=== PATIENT | female | born 1985 | race Two or more races ===

== ENCOUNTER 2023-07-21 20:02 | Outpatient (REF) | payer OTHER, SELFPAY ==
[2023-07-28 15:07] LABS: Age Gdln ACOG Testing Note (.); HPV Aptima Negative (Negative); IGP, Aptima HPV, rfx 16/18,45 Note (.)
== END 2023-07-21 20:03 | disposition home or self-care (01) ==
LOC: LAB 20:02
PROVIDERS: PCP Obstetrics & Gynecology; Visit Provider Obstetrics & Gynecology
DX: Z12.4 Encounter for screening for malignant neoplasm of cervix (principal)
CPT/HCPCS: 87624; G0145

== ENCOUNTER 2024-07-28 19:26 | Outpatient (REF) | payer OTHER, SELFPAY ==
[2024-08-03 10:13] LABS: Age Gdln ACOG Testing Note (.); HPV Aptima Negative (Negative); IGP, Aptima HPV, rfx 16/18,45 Note (.)
== END 2024-07-28 19:27 | disposition home or self-care (01) ==
LOC: LAB 19:26
PROVIDERS: PCP Obstetrics & Gynecology; Visit Provider Obstetrics & Gynecology
DX: Z01.419 Encounter for gynecological examination (general) (routine) without abnormal findings (principal)
CPT/HCPCS: 87624; 88175

== ENCOUNTER 2025-08-08 03:45 | Emergency (ER) | payer OTHER, SELFPAY ==
--- OUTSIDE RECORDS SUMMARY | 2025-08-03 20:57 | XMS_ITS | Encounter Summary ---
Author Organization [employer] [facility] Address [facility] [id number] [address] [place] [address] Care Team Providers Care Case Managers Name Role Phone Carmita Albright MD Primary Care Provider [phone] Reason for Visit * Reason Comments Dizziness Encounter Details Date Type Department Care Team ([facility] st Contact Info) Description 08/03/2025 8:57 PM EDT - 08/03/2025 10:57 PM EDT Emergency [facility] - Emergency [address] [place] [id number] Tomas West MD [address] [place] [address] [phone] Orthostasis (Primary Dx) Discharge Disposition: Home Social History Tobacco Use Types Packs/Day Years Used Date Smoking Tobacco: Never Smokeless Tobacco: Never Childcare Answer Date Recorded Childcare Unknown 05/04/2019 Employment Answer Date Recorded Employment Unknown 05/04/2019 Hunger Screening Answer Date Recorded Within the past 12 months we worried whether our food would run out before we got money to buy more. Never True 08/03/2025 Within the past 12 months th e food we bought just didn't last and we didn't have money to get more. Never True 08/03/2025 Comments No Sex and Gender Information Value Date Recorded Sex Assigned at Not on file Legal Sex Female 12:01 PM EDT Gender Identity Not on file Sexual Orientation Not on file documented as of this encounter Last Filed Vital Signs Vital Sign Reading Time Taken Comments Blood Pressure 116/84 08/03/2025 10:45 PM EDT Pulse 80 08/03/2025 10:45 PM EDT Temperature 36.3 C (97.3 F) 08/03/2025 9:01 PM EDT Respiratory Rate 16 08/03/2025 10:45 PM EDT Oxygen Saturation 97% 08/03/2025 10:45 PM EDT Inhaled Oxygen Concentration - - Weight 61.7 kg (136 lb) 08/03/2025 9:01 PM EDT Height 157.5 cm (5' 2 ) 08/03/2025 9:01 PM EDT Body Mass Index 24.87 08/03/2025 9:01 PM EDT documented in this encounter Discharge Instructions * Attachments The following attachments cannot be sent through Care Everywhere. * Orthostatic hypotension (Kittitian) documented in this encounter Medications at Time of Discharge metFORMIN (FORTAMET) 500 MG (OSM) 24 hr tablet Take 1 tablet (500 mg total) by mouth in the morning and 1 tablet (500 mg total) in the evening. Take with meals. ondansetron (ZOFRAN) 4 mg tablet Take 1 tablet (4 mg total) by mouth every 8 (eight) hours as needed for nausea or vomiting for up to 12 doses. 12 tablet 10/24/2021 documented as of this encounter ED Notes * Tomas West MD - 08/03/2025 9:06 PM EDT Images from the original note were not included. [facility] - EMERGENCY Pt Name: Dora De Jesus Birthdate: 1985 Chief Complaint: Chief Complaint Patient presents with Dizziness History of Present Illness: Initial evaluation performed at 9:[address] West. Patient is a 40 y.o. pre-diabetic female who presents to the ED for evaluation of dizziness . Pt states that she she began experiencing diaphoresis, anxious feeling, light-headedness, and a weird chest sensation after standing up and walking around. Pt describes her light-headedness as feeling like she was going to pass out, not like the room was spinning around her. Pt describes chest sensationas weird, but not painful and denies feeling palpitations or flutters in the heart. Pt states that she suspects her blood sugar was low, but she has no way to check it. She checked her blood pressure, which was 131/95. Pt denies any bloody stools. Pt denies any recent travel or surgeries. Pt takes Metformin. These symptoms were worsened by standing up fast. Patient has not eat or drank well over the past couple of years. 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) Past Surgical History: History reviewed. No pertinent surgical history. Family History: History reviewed. No pertinent family history. Social History: Social History Socioeconomic History Marital status: Tobacco Use Smoking status: Never Smokeless tobacco: Never Substance and Sexual Activity Drug use: Yes Types: Marijuana Social Drivers of Health Financial Resource Strain: Low Risk (04/04/2024) Received from [facility] Overall Financial Resource Strain (CARDIA) Difficulty of Paying Living Expenses: Not hard at all Food Insecurity: No Food Insecurity (08/03/2025) Hunger Screening Food Insecurity - Worry: Never True Food Insecurity - Inability: Never True Transportation Needs: No Transportation Needs (04/04/2024) Received from [facility] PRAPARE - Transportation Lack of Transportation (Medical): No Lack of Transportation (Non-Medical): No Physical Activity: Insufficiently Active (04/04/2024) Received from [facility] Exercise Vital Sign Days of Exercise per Week: 2 days Minutes of Exercise per Session: 20 min Stress: Stress Concern Present (04/04/2024) Received from [facility] [place] [facility] [employer] [facility] - Occupational Stress Questionnaire Feeling of Stress : To some extent Social Connections: Moderately Integrated (04/04/2024) Received from [facility] Social Connection and Isolation Panel [NHANES] Frequency of Communication with Friends and Family: More than three times a week Frequency of Social Gatherings with Friends and Family: Twice a week Attends Protestant Services: More than 4 times per year Active Member of Clubs or Organizations: No Attends Club or Organization Meetings: Patient declined Marital Status: Housing Instability: Low Risk (04/04/2024) Received from [facility] Housing Stability Vital Sign Unable to Pay for Housing in the Last Year: No Number of Places Lived in the Last Year: 1 Unstable Housing in the Last Year: No Review of Systems: Review of Systems Physical Exam: ED Triage Vitals Temp Heart Rate Resp BP SpO2 08/03/25 2101 08/03/25 2101 08/03/25 2103 08/03/25 21008/03/252100 36.3 ??C (97.3 ??F) 86 20 (!) 132/98 100 % Temp Source Heart Rate Source Patient Position BP Location FiO2 (%) 08/03/25210008/03/25210008/03/25210008/03/252100 -- Oral Monitor Sitting Left arm Vitals: 08/03/25 2200 08/03/25 2215 08/03/25 2230 08/03/25 2245 BP: 100/71 129/87 (!) 124/99 116/84 Temp: TempSrc: Pulse: 74 88 82 80 Resp: 17 23 18 16 SpO2: 97% 97% MAP (mmHg): 79 101 Height: Weight: Physical Exam Vitals reviewed. Constitutional: General: She is not in acute distress. Appearance: She is not toxic-appearing or diaphoretic. HENT: Head: Normocephalic and atraumatic. Mouth/Throat: Mouth: Mucous membranes are moist. Eyes: Conjunctiva/sclera: Conjunctivae normal. Cardiovascular: Rate and Rhythm: Normal rate and regular rhythm. Heart sounds: No murmur heard. No friction rub. No gallop. Pulmonary: Effort: Pulmonary effort is normal. No respiratory distress. Breath sounds: Normal breath sounds. No stridor. No wheezing. Abdominal: General: There is no distension. Palpations: Abdomen is soft. Musculoskeletal: General: No swelling or tenderness. Normal range of motion. Cervical back: Normal range of motion and neck supple. Right lower leg: No swelling or tenderness. No edema. Left lower leg: No swelling or tenderness. No edema. Skin: General: Skin is warm and dry. Capillary Refill: Capillary refill takes 2 to 3 seconds. Neurological: General: No focal deficit present. Mental Status: She is alert and oriented to person, place, and time. GCS: GCS eye subscore is 4. GCS verbal subscore is 5. GCS motor subscore is 6. Procedure: Procedures Re-evaluation: Re-Evaluation Medical Decision Making Amount and/or Complexity of Data Reviewed Labs: ordered. Decision-making details documented in ED Course. ECG/medicine tests: ordered. ED Course: ED Course as of 08/03/25 2253 Jennifer Aug 03, [id number] Troponin within normal indices. No electrolyte derangements, BUN/creatinine within normal indices, no leukocytosis, H&H reassuring against acute clinically significant anemia. [RH] 2204 Glucose: 99 [RH] 2225 Upon re-evaluation, patient reports he is feeling better. Likely orthostasis. Orthostatics negative after IV fluid administration. Plan to discharge patient with follow up to primary care physician. Patient given strict return precautions. Patient expressed understanding. All questions and concerns answered and addressed. Patient agreeable to discharge plan. [RH] ED Course User Index [RH] Tomas West MD Clinical Impressions as of 08/03/252252 Orthostasis . ED Disposition ED Disposition Discharge Date/Time Jennifer Aug 03, 2025 10:29 PM Comment At the time of discharge, the plan has been discussed with the patient regarding the diagnosis and prognosis. All questions have been answered. Verbal discharge instructions were discussed with the patient. The patient has been advised to follow up w ith their Primary Care Provider within 1-2 days.The patient was also instructed to return to the ED if their symptoms change, worsen, new symptoms a rise or if they have any additional concerns. . Please note that portions of this note were completed with a voice recognition program. Efforts were made to edit the dictations but occasionally words are mis-transcribed. Cherrie Brandon 08/03/252112 Tomas West MD 08/03/252252 documented in this encounter Plan of Treatment Not on file documented as of this encounter Procedures Procedure Name Priority Date/Time Associated Diagnosis Comments TROPONIN I, HIGH SENSITIVITY 0 HOUR STAT 08/03/2025 9:28 PM EDT TROPONIN I, HIGH SENSITIVITY 0 HOUR STAT 08/03/2025 9:28 PM EDT CBC WITH AUTO DIFFERENTIAL STAT 08/03/2025 9:28 PM EDT MAGNESIUM STAT 08/03/2025 9:28 PM EDT BASIC METABOLIC PANEL STAT 08/03/2025 9:28 PM EDT EXTRA TUBES BLUE TOP Routine 08/03/2025 9:27 PM EDT EXTRA TUBES Routine 08/03/2025 9:27 PM EDT ECG 12-LEAD STAT 08/03/2025 9:09 PM EDT documented in this encounter Results * Troponin I, High Sensitivity 0 Hour (08/03/2025 9:28 PM EDT) Pathologist [facility] TROPONIN I, HIGH SENSITIVITY <2 <16 ng/L 08/03/2025 9:57 PM EDT [facility] Blood Venous blood / Unknown Venipuncture / Unknown 08/03/2025 9:28 PM EDT 08/03/2025 9:29 PM EDT us Tomas West MD LAB BLOOD ORDERABLES Final Resu lt Performing Organization Address [facility]/ZIP Co de Phone Number [address] [place] [address], [place] * Magnesium (08/03/2025 9:28 PM EDT) Pathologist [facility] MAGNESIUM 2.2 1.8 - 2.6 mg/dL 08/03/2025 9:45 PM EDT [facility] Blood Venous blood / Unknown Venipuncture / Unknown 08/03/2025 9:28 PM EDT 08/03/2025 9:29 PM EDT Tomas West MD LAB BLOOD ORDERABLES Final Resu lt [address] [place] [address], [place] * Basic Metabolic Panel (08/03/2025 9:28 PM EDT) Pathologist [facility] SODIUM 138 134 - 146 mmol/L 08/03/2025 9:45 PM EDT [facility] POTASSIUM 3.7 3.5 - 5.0 mmol/L 08/03/2025 9:45 PM EDT [facility] CHLORIDE 103 98 - 109 mmol/L 08/03/2025 9:45 PM EDT [facility] CARBON DIOXIDE 27 22 - 32 mmol/L 08/03/2025 9:45 PM EDT [facility] ANION GAP 8 5 - 15 mmol/L 08/03/2025 9:45 PM EDT [facility] BLOOD UREA NITROGEN 15 5 - 23 mg/dL 08/03/2025 9:45 PM EDT [facility] CREATININE 0.99 0.40 - 1.00 mg/dL 08/03/2025 9:45 PM EDT [facility] Comment:METHOD TRACEABLE TO IDMS STANDARD GLUCOSE 99 65 - 99 mg/dL 08/03/2025 9:45 PM EDT [facility] CALCIUM 9.4 8.5 - 10.5 mg/dL 08/03/2025 9:45 PM EDT [facility] EGFR Non-Race Dependent 73 >=60 ml/min/1.7 3sq.m 08/03/2025 9:45 PM EDT [facility] Comment: eGFR not reported due to non-numeric value for Creatinine. Reported eGFR is based on the CKD-EPI 2020 equation that does not use a race coefficient. Blood Venous blood / Unknown Venipuncture / Unknown 08/03/2025 9:28 PM EDT 08/03/2025 9:29 PM EDT us Tomas West MD LAB BLOOD ORDERABLES Final Resu lt [facility] [address] [place] [address], [place] * (ABNORMAL) CBC auto differential (08/03/2025 9:28 PM EDT) WBC 6.3 4 - 11 x10E9/L 08/03/2025 9:34 PM EDT [facility] RBC Count 4.67 3.8 - 5.2 X10E12/L 08/03/2025 9:34 PM EDT [facility] Hemoglobin 13.8 11.7 - 15.5 g/dL 08/03/2025 9:34 PM EDT [facility] Hematocrit 40.6 35 - 47 % 08/03/2025 9:34 PM EDT [facility] MCV 87 80 - 100 fL 08/03/2025 9:34 PM EDT [facility] MCH 29.5 27 - 34 pg 08/03/2025 9:34 PM EDT [facility] MCHC 34.0 32 - 36 g/dL 08/03/2025 9:34 PM EDT [facility] RDW 13.8 11.5 - 15 % 08/03/2025 9:34 PM EDT [facility] Platelet Count 294 150 - 450 X10E9/L 08/03/2025 9:34 PM EDT [facility] MPV 6.9(L) 7 - 12 fL 08/03/2025 9:34 PM EDT [facility] Neutrophils % 67.8 % 08/03/2025 9:34 PM EDT [facility] Lymphocytes % 21.9 % 08/03/2025 9:34 PM EDT [facility] Monocytes % 9.5 % 08/03/2025 9:34 PM EDT [facility] Eosinophils % 0.7 % 08/03/2025 9:34 PM EDT [facility] Basophils % 0.1 % 08/03/2025 9:34 PM EDT [facility] Neutrophils Absolute (A) 4.3 1.5 - 6.6 10*3/uL 08/03/2025 9:34 PM EDT [facility] Lymphocytes Absolute 1.4 1.0 - 3.5 10*3/uL 08/03/2025 9:34 PM EDT [facility] Monocytes Absolute 0.6 0.0 - 0.9 10*3/uL 08/03/2025 9:34 PM EDT [facility] Eosinophils Absolute 0.0 0.0 - 0.4 10*3/uL 08/03/2025 9:34 PM EDT [facility] Basophils Absolute 0.0 0.0 - 0.2 10*3/uL 08/03/2025 9:34 PM EDT [facility] Differential Type AUTOMATED DIFFERENTIAL 08/03/2025 9:34 PM EDT [facility] Blood Venous blood / Unknown Venipuncture / Unknown 08/03/2025 9:28 PM EDT 08/03/2025 9:29 PM EDT us Tomas West MD LAB BLOOD ORDERABLES Final Resu lt [facility] [address] [place] [address] [place] [address], [place] * Light Blue Top (08/03/2025 9:27 PM EDT) Extra Tube Auto Resulted 08/03/2025 11:01 PM EDT [facility] Blood Venous blood / Unknown 08/03/2025 9:27 PM EDT 08/03/2025 9:30 PM EDT us Tomas West MD LAB BLOOD ORDERABLES Final Resu lt Performing Organization Address City/[facility]/ZIP Co de Phone Number [address] [place] [address], [place] * ECG 12 lead (08/03/2025 9:09 PM EDT) 08/03/2025 9:09 PM EDT Narrative [facility]AC[facility] - 08/03/2025 10:12 PM EDT us Tomas West MD ECG ORDERABLES Final Result [facility] documented in this encounter Visit Diagnoses Diagnosis Orthostasis- Primary Orthostatic hypotension documented in this encounter Administered Medications Inactive Administered Medications - up to 3 most recent administrations Medication Order MAR Action Action Date Dose Rate Site sodium chloride 0.9 % bolus 1,000 mL, intravenous, at 984 mL/hr, Administer over 61 Minutes, Once, On Jennifer 08/03/25 at 2110, For 1 dose Rate/Dose Verify 08/03/2025 10:25 PM EDT 984 mL/hr New Bag 08/03/2025 9:35 PM EDT 1,000 mL 984 mL/hr documented in this encounter Active and Recently Administered Medications Times are shown in EDT. Scheduled Medication Order 08/01/2025 08/02/2025 08/03/2025 sodium chloride 0.9 % bolus (COMPLETED) 1,000 mL, intravenous, at 984 mL/hr, Administer over 61 Minutes, Once, On Jennifer 08/03/25 at 2110, For 1 dose 2135 (New Bag - Prov ider: Justine Sutherland RN)2225 (Rate/Dose Verify - Provider: Justine Sutherland RN)2247 (Stop Bag - Provider: Justine Sutherland RN) documented in this encounter Care Teams Case Managers Relationship Specialty Start Date End Date Carmita Albright MD PCP - General Family Medicine 10/24/21 documented as of this encounter
--- OUTSIDE RECORDS SUMMARY | 2025-08-07 12:20 | XMS_ITS | Encounter Summary ---
Author Organization [facility] Healthcare Address [address] [place] [address] Care Team Providers Care Pesticide Chemist Name Role Phone Carmita Albright MD Primary Care Provider [phone] Reason for Referral * Imaging (Routine) - Authorized Specialty Diagnoses / Procedures Referred By Contac t Referred To Contact Radiology Diagnoses Weight loss Oropharyngeal dysphagia Other chest pain Procedures [place] esophagus barium swallow Carmita Albright MD [address] [place] [id number] Phone: tel: fax: [facility] fax: Referral ID Status Reason Start Date Expiration Date Visits Requested Visits Authorized [id number] Authorized Perform Procedure 08/07/2025 02/03/2026 1 1 * Medications - Closed Specialty Diagnoses / Procedures Referred By Arely t Referred To Contact Diagnoses Anxiety Carmita Albright MD [address] [place] [phone] Phone: tel: fax: Referral ID Status Reason Start Date Expiration Date Visits Re quested Visits Authorized [id number] Closed 1 1 * Behavioral Health - Outpatient (Routine) - Authorized Specialty Diagnoses / Procedures Referred By Contac t Referred To Contact Psychology / Behavioral Health Diagnoses Anxiety Procedures [place] OFFICE/OUTPATIENT [facility] 60 MINUTES Carmita Albright MD [address] [place] [address] Phone: tel: fax: Dustin Cortez LPC Referral ID Status Reason Start Date Expiration Date Visits Requested Visits Authorized [id number] Authorized Specialty Services Required 08/07/2025 02/03/2026 1 1 * Imaging (Routine) - Pending Review Specialty Diagnoses / Procedures Referred By Arely ashraf Referred To Contact Radiology Diagnoses Other chest pain Procedures CT chest wo IV contrast Carmita Albright MD [address] [place] [address] Phone: tel: fax: Referral ID Status Reason Start Date Expiration Date V isits Requested Visits Authorized [id number] Pending Review 08/07/2025 02/03/2026 1 1 Reason for Visit * Reason Comments Follow-up Encounter Details Date Type Department Care Team (Late st Contact Info) Description 08/07/2025 12:20 PM EDT [facility] [place] [facility] [address] [place] [address] Carmita Albright MD [address] [place] [address] Weight loss (Primary Dx); Anxiety; Oropharyngeal dysphagia; Other chest pain Social History Tobacco Use Types Packs/Day Years Used Date Smoking Tobacco: Former Cigarettes Comments:5 or less cigarette s/day stopped smoking cigarettes 2022. Alcohol Use Standard Drinks/Week Comments Not Currently 1 (1 standard drink = 0.6 oz pure alcohol) Alcohol: 3-4 drinks/monthly or less. Caffeine: 2 cups/day coffee; soda Social Connection and Isolat ion Panel [NHANES] Answer Date Recorded In a typical week, how many times do you talk on the phone with family, friends, or neighbors? More than three times a week 04/04/2024 How often do you get togethe r with friends or relatives? Twice a week 04/04/2024 How often do you attend chur or buddhist services? More than 4 times per year 04/04/2024 Do you belong to any clubs o r organizations such as rastafari groups, unions, fraternal or athletic groups, or school groups? No 04/04/2024 How often do you attend meet ings of the clubs or organizations you belong to? Patient declined 04/04/2024 Are you , , di vorced, , never , or living with a partner? 04/04/2024 AUDIT-C Answer Date Recorded Q1: How often do you have a drink containing alc ohol? Monthly or less 04/04/2024 Q2: How many drinks containi ng alcohol do you have on a typical day when you are drinking? 1 or 2 04/04/2024 Q3: How often do you have si x or more drinks on one occasion? Never 04/04/2024 Overall Financial Resource Strain (CARDIA) Answe r Date Recorded How hard is it for you to pa y for the very basics like food, housing, medical care, and heating? Not hard at all 04/04/2024 PHQ-2 Answer Date Recorded Patient Health Questionnaire-2 Score 0 06/14/2025 [facility] - Occupational Stress Questionnaire Answer Date Recorded Do you feel stress - tense, restless, nervous, or anxious, or unable to sleep at night because your mind is troubled all the time - these days? To some extent 04/04/2024 Exercise Vital Sign Answer Date Recorde d On average, how many days pe r week do you engage in moderate to strenuous exercise (like a brisk walk)? 2 days 04/04/2024 On average, how many minutes do you engage in exercise at this level? 20 min 04/04/2024 Hunger Vital Sign Answer Date Recorded Within the past 12 months, y ou worried that your food would run out before you got the money to buy more. Never true 04/04/20 24 Within the past 12 months, t he food you bought just didn't last and you didn't have money to get more. Never true 04/04/2024 PRAPARE - Transportation Answer Date Re corded In the past 12 months, has l ack of transportation kept you from medical appointments or from getting medications? No 03/23 In the past 12 months, has l ack of transportation kept you from meetings, work, or from getting things needed for daily living? No 04/04/2024 Housing Stability Vital Sign Answer Alex e Recorded In the last 12 months, was t here a time when you were not able to pay the mortgage or rent on time? No 04/04/2024 In the last 12 months, how many places have you lived? 1 04/04/2024 In the last 12 months, was t here a time when you did not have a steady place to sleep or slept in a nursing home (including now)? No 04/04/2024 Comments No Sex and Gender Information Value Date Recorded Sex Assigned at Female 04/04/2024 1:53 PM EDT Legal Sex Female 6:54 PM EDT Gender Identity Female 04/04/2024 1:53 PM EDT Sexual Orientation Straight 04/04/2024 1: 53 PM EDT documented as of this encounter Last Filed Vital Signs Vital Sign Reading Time Taken Comments Blood Pressure 112/68 08/07/2025 12:19 PM EDT Pulse 67 08/07/2025 12:19 PM EDT Temperature - - Respiratory Rate 18 08/07/2025 12:19 PM EDT Oxygen Saturation 99% 08/07/2025 12:19 PM EDT Inhaled Oxygen Concentration - - Weight 62.4 kg (137 lb 9.6 oz) 08/07/2025 12:19 PM EDT Height 164.5 cm (5' 4.75 ) 08/07/2025 12:19 PM E DT Body Mass Index 23.07 08/07/2025 12:19 PM EDT documented in this encounter Progress Notes * Carmita Albright MD - 08/07/2025 12:20 PM EDT Images from the original note were not included. Subjective ?Quick Links Last Note in Specialty Snapshot Edit RFV/CC Edit Screenings Current Meds Patient ID: Tara De Jesus is a 40 y.o. female who presents for Follow-up. HPI History of Present Illness The patient is a 40-year-old female who presents for anxiety, weight loss, dysphagia, and prediabetes. She reports experiencing episodes of sweating, which she believes are panic attacks rather than heart attacks. These episodes typically occur between 7 and 11 PM. She describes a sensation of being squeezed in her chest, accompanied by sweaty hands. During her last ER visit, she was informed that her sodium levels were low, but her other lab results were normal. After receiving fluids, she felt better. She has been experiencing weight loss, which she initially dismissed but now considers significant. She has been forcing herself to eat, even though the thought of food makes her feel nauseous. The patient has been under stress due to an impending divorce and work-related issues. She has beenexperiencing these symptoms for about 4 to 5 months. She has stopped taking gummies, which she had been using to aid sleep, but her symptoms persist. She is concerned about being alone during these episodes and fears something might happen to her. She has been taking metformin for prediabetes. She does not usually eat breakfast, but today she had a granola bar. She forces herself to eat at every meal, even though she does not feel hungry. Eating seems to help with her shakiness, but not with her chest discomfort. She occasionally experiences difficulty swallowing and heartburn, but only after eating certain foods. She tries to avoid these foods. The patient is not currently taking any medication for stress. She is interested in trying a low-dose anxiety medication and is open to seeing a counselor. She is also interested in learning techniques to calm herself down at home, as she feels uncomfortable going to the ER. She used to walk regularly but had to stop due to feeling faint. She has found that putting her head between her knees helps prevent her from fainting. Social History: Marital Status: Going through a divorce Diet: Forcing herself to eat despite nausea Alcohol: Does not drink Tobacco: Does not smoke cigarettes Recreational Drugs: Stopped taking gummies for sleep Sleep: Has always had a hard time sleeping ?Quick Review Review Full History Edit History Meds - metFORMIN (Glucophage) 500 MG tablet --- PMH - History of hormone replacement therapy History of migraine headaches Insomnia Pelvic pain Pneumonia Objective ?Quick Links Add Vitals Timeline (Adult) Labs Imaging Results Review Trend Vitals ?? Avoid pulling in long tables of results. Comment on relevant results to support your medical decision making. BP 112/68 (BP Location: Left arm, Patient Position: Sitting, BP Cuff Size: Adult) Pulse 67 Resp18 Ht 5' 4.75 Wt 137 lb 9.6 oz SpO2 99% BMI 23.07 kg/m?? Physical Exam Constitutional: Appearance: Normal appearance. She is normal weight. HENT: Head: Normocephalic and atraumatic. Nose: Nose normal. Mouth/Throat: Mouth: Mucous membranes are moist. Eyes: Pupils: Pupils are equal, round, and reactive to light. Cardiovascular: Rate and Rhythm: Normal rate and regular rhythm. Heart sounds: No murmur heard. Pulmonary: Effort: Pulmonary effort is normal. Breath sounds: Normal breath sounds. No wheezing or rhonchi. Musculoskeletal: General: No swelling. Cervical back: Normal range of motion and neck supple. Right lower leg: No edema. Left lower leg: No edema. Skin: General: Skin is warm and dry. Findings: No rash. Neurological: Mental Status: She is alert and oriented to person, place, and time. Sensory: No sensory deficit. Gait: Gait normal. Psychiatric: Mood and Affect: Mood normal. Thought Content: Thought content normal. Judgment: Judgment normal. Physical Exam ?Quick Links Full Problem List Assessment & Plan Weight loss Orders: HOTSHOT SUPERINTENDENT videofluoroscopic swallow study; Future Anxiety Orders: escitalopram (Lexapro) 5 MG tablet; Take 1 tablet (5 mg) by mouth Daily Oropharyngeal dysphagia Orders: HOTSHOT SUPERINTENDENT videofluoroscopic swallow study; Future Other chest pain Orders: CT chest wo IV contrast; Future HOTSHOT SUPERINTENDENT videofluoroscopic swallow study; Future Consider ppi Assessment & Plan 1. Anxiety: - Symptoms suggest anxiety, potentially exacerbated by stress from impending divorce and work-related issues. - Discussed the possibility of side effects from gummies consumed in mid-June 2025, but these areunlikely to be the cause of current symptoms. Counseling on anxiety management was provided. - Escitalopram prescribed at a daily dose of 1 tablet, with potential side effects including increased appetite discussed. Xanax prescribed for use as needed during severe anxiety episodes. Advised to maintain regular meals, particularly breakfast and lunch, and to monitor caffeine intake as it canlower blood sugar levels. 2. Chest pain: - A CT scan of the chest and lungs will be ordered to investigate the cause of chest pain. 3. Dysphagia: - A swallow study will be conducted [facility] to ensure there are no blockages or other issues with the ability to swallow food. 4. Prediabetes: - Metformin will be discontinued. Follow-up: A follow-up appointment is scheduled in 2 weeks or sooner if her condition worsens. Send swallow study documented in this encounter Plan of Treatment Upcoming Encounters Date Type Department Care Team (Late st Contact Info) Description 08/14/2025 8:30 AM EDT Ancillary Procedure [facility] [address] [facility] [address] [place] [address] 08/21/2025 3:00 PM EDT Office Visit [facility] [address] [place] [address] Carmita Albright MD [address] [place], [place] [id number] Scheduled Orders Name Type Priority Associated Diagnoses Orde r Schedule CT chest wo IV contrast Imaging Routine Other chest pain Expected: 08/07/2025, Expires: 08/07/2026 [place] esophagus barium swallow Imaging Routine Weight loss Oropharyngeal dysphagia Other chest pain Expected: 08/07/2025, Expires: 08/07/2026 Scheduled Referrals Name Type Priority Associated Diagnoses Order Schedule Ambulatory referral to Psychology Outpatient Referral Routine Anxiety Expected: 08/07/2025 (Approximate), Expires: 02/04/2026 documented as of this encounter Goals Goal Patient Goal Type Associated Problems Recent Progress Patient-Stated? Author Help patient manage antidepressant medication Care Plan Patient on antidepressant monitoring plan No Carmita Albright MD Baseline PHQ-9 Care Plan Baseline PHQ-9 Carmita Landon MD documented as of this encounter Visit Diagnoses Diagnosis Weight loss- Primary Loss of weight Anxiety Anxiety state, unspecified Oropharyngeal dysphagia Dysphagia, oropharyngeal phase Other chest pain documented in this encounter Additional Health Concerns Active Problems Noted Date Diagnosed Date Patient on antidepressant monitoring plan 2024 Baseline PHQ-9 08/07/2025 documented as of this encounter Care Teams Pesticide Chemist Relationship Specialty Start Date End Date Carmita Albright MD [address] [place], [place] [id number] PCP - General Family Medicine 03/31/23 documented as of this encounter
[2025-08-08] VITALS (9 sets, daily range): BP systolic 140–151; BP diastolic 96–107; PULSE 64–81; TEMP 37.2; O2SAT 97–98; BMI 25.1
--- OUTSIDE RECORDS SUMMARY | 2025-08-08 03:53 | XMS_ITS | Clinical Summary ---
Author Organization [facility] Healthcare Address [address] [place] [address] Care Team Providers Care Medical Lab Director Name Role Phone Carmita Albright MD Primary Care Provider [phone] Allergies Active Allergy Reactions Criticality Noted Date Comments Aspirin GI intolerance 05/07/2023 Codeine Itching 05/07/2023 Medications escitalopram (Lexapro) 5 MG tabletIndication s:Anxiety Take 1 tablet (5 mg) by mouth Daily 30 tablet 2 5 11/05/20 25 Active ALPRAZolam (Xanax) 0.5 MG tabletIndication s:Anxiety Take 1 tablet (0.5 mg) by mouth 3 (three) times a day as needed for anxiety 30 tablet 5 04/04/20 26 Active metFORMIN (Glucophage) 500 MG tabletIndication s:Glucose intolerance Take 1 tablet (500 mg) by mouth in the morning and 1 tablet (500 mg) in the evening. Take with meals. 180 tablet 3 5 08/07/20 25 Discontinu ed(Therapy completed) Active Problems Problem Noted Date Diagnosed Date History of hysterectomy 06/14/2025 Insomnia 06/14/2025 Tobacco abuse 06/14/2025 Assessment & Plan (06/14/2025 3:41 PM EDT): congrats on cessation Encounters Date Type Department Care Team Description 08/07/2025 12:20 PM EDT Office Visit [facility] [address] [facility] [place] [address] Carmita Albright MD Weight loss (Primary Dx); Anxiety; Oropharyngeal dysphagia; Other chest pain 08/07/[address] [place] [address] [place] [address] Carmita Albright MD 08/07/2025 Bamboo flowsheet [place] [address] [facility] [place] [address] Carmita Albright MD 08/07/2025 Travel 07/21/2025 Abstract [place] [address] [facility] [place] [address] Carmita Albright MD 06/15/2025 Results Follow-Up [place] [address] [facility] [place] [address] Carmita Albright MD CBC and differential, Lipid panel, Hemoglobin A1c, Additional followed-up results: 4 06/14/2025 8:20 AM EDT Office Visit [place] [address] [facility] [place] [address] Carmita Albright MD Routine general medical examination at a health care facility (Primary Dx); Tobacco abuse; Glucose intolerance; Dysuria; Elevated glucose; Breast cancer screening by mammogram; Weight loss 06/14/2025 Bamboo flowsheet [place] [address] [facility] [place] [address] Carmita Albright MD 06/14/2025 Travel 06/13/2025 Refill [place] [address] [facility] [place] [address] Leslie De Leon MA Glucose intolerance 06/09/2025 11:00 AM EDT Office Visit [place] [address] [facility] [place] [address] Carin Wren NP Upper respiratory tract infection, unspecified type (Primary Dx); Sore throat; Acute effusion of both middle ears 06/09/2025 Bamboo flowsheet [place] [address] [place] [phone] Carin Wren NP 06/09/2025 Travel from Last 3 Months Immunizations Immunization Administration Dates Next Due Tdap 09/02/2022,04/24/2005 Family History Medical History Relation Name Comments Diabetes Father Walter Diez Cancer Mother Tori Diez Uterine cancer Other Relation Name Status Comments Brother (2) Daughter (2) Alive Father Walter Diez Alive Mother Tori Diez Other Sister (6) Social History Tobacco Use Types Packs/Day Years Used Date Smoking Tobacco: Former Cigarettes Tobacco Cessation:Counseling Given: Not Answered Comments:5 or less cigarettes/day stopped smoking cigarettes 2022. Alcohol Use Standard [...] How often do you attend chur or christian services? More than 4 times per year 04/04/2024 Do you belong to any clubs o r organizations such as voodoo groups, unions, fraternal or athletic groups, or [...] Recorded Patient Health Questionnaire-2 Score 0 06/14/2025 [facility] - Occupational Stress Questionnaire Answer Date Recorded [...] money to buy more. Never true 04/04/20 Within the past 12 months, t he [...] place to sleep or slept in a halfway (including now)? No 04/04/2024 Comments No Sex and Gender Information Value Date Recorded Sex Assigned at Female 04/04/2024 1:53 PM EDT Legal Sex Female 6:54 PM EDT Gender Identity Female 04/04/2024 1:53 PM EDT Sexual Orientation Straight 04/04/2024 1: 53 PM EDT Last Filed Vital Signs Vital Sign Reading Time Taken Comments Blood Pressure 112/68 08/07/2025 12:19 PM EDT Pulse 67 08/07/2025 12:19 PM EDT Temperature 36.4 C (97.6 F) 06/09/2025 11:02 AM EDT Respiratory Rate 18 08/07/2025 12:19 PM EDT Oxygen Saturation 99% 08/07/2025 12:19 PM EDT Inhaled Oxygen Concentration - - Weight 62.4 kg (137 lb 9.6 oz) 08/07/2025 12:19 PM EDT Height 164.5 cm (5' 4.75 ) 08/07/2025 12:19 PM E DT Body Mass Index 23.07 08/07/2025 12:19 PM EDT Plan of Treatment Upcoming Encounters Date Type Department Care Team (Late st Contact Info) Description 08/14/2025 8:30 AM EDT [facility] [address] [address] 08/21/2025 3:00 PM EDT [facility] [address] [place] [phone] Carmita Albright MD [address] [place] [address] Health Maintenance Due Date Last Done Comments Mammogram 08/11/2025 08/11/2024 Influenza Vaccine (#1) 2026 Postp oned from 07/24/2025 (Patient Refused) Cervical Cancer Screening Discontinued Pap Smear Discontinued 07/21/2023 HPV/Cotest Discontinued Goals Goal Patient Goal Type Associated Problems Recent Progress Patient-Stated? Author Help patient manage antidepressant medication Care Plan Patient on antidepressant monitoring plan No Carmita Albright MD Baseline PHQ-9 Care Plan Baseline PHQ-9 No Carmita Albright MD Procedures Procedure Name Priority Date/Time Associated Diagnosis Comments MICROALBUMIN / CREATININE URINE RATIO Routine 06/14/2025 1:12 PM EDT Routine general medical examination at a [facility] care facility Glucose intolerance Elevated glucose CULTURE, URINE, ROUTINE Routine 06/14/2025 1:12 PM EDT Dysuria TSH W/REFLEX TO FT4 Routine 06/14/2025 8 :50 AM EDT Weight loss COMPREHENSIVE METABOLIC PANEL Routine 06/14/2025 8:50 AM EDT Routine general medical examination at a health care facility Glucose intolerance Elevated glucose HEMOGLOBIN A1C Routine 06/14/2025 8:50 AM EDT Routine general medical examination at a health care facility Glucose intolerance Elevated glucose LIPID PANEL Routine 06/14/2025 8:50 AM EDT Routine general medical examination at a health care facility Glucose intolerance Elevated glucose CBC (INCLUDES DIFF/PLT) Routine 06/14/2025 8:50 AM EDT Routine general medical examination at a health care facility Glucose intolerance Elevated glucose POCT RAPID STREP A Routine 06/09/2025 11 :26 AM EDT Upper respiratory tract infection, unspecified type Sore throat STATUS COVID-19/FLU Routine 06/09/2025 1 1:26 AM EDT Upper respiratory tract infection, unspecified type BI MAMMOGRAM SCREENING TOMOSYNTHESIS BILATERAL Routine 08/11/2024 3:59 PM EDT Breast cancer screening by mammogram PAP SMEAR Routine 07/21/2023 12:00 AM EDT from Last 3 Months or Most Recently Relevant to Health Maintenance Results * Microalbumin / creatinine urine ratio (06/14/2025 1:12 PM EDT) CREATININE, RANDOM URINE 87 20 - 275 mg/dL [facility] ALBUMIN, URINE 0.6 See Note: mg/dL [facility] Comment: Reference Range: Reference Range Not established ALBUMIN/CREATININE RATIO, RANDOM URINE 7 <30 mg/g creat [facility] Comment: The ADA defines abnormalities in albumin excretion as follows: Albuminuria Category Result (mg/g creatinine) Normal to Mildly increased <30 Moderately increased 30-299 Severely increased > OR = 300 The ADA recommends that at least two of three specimens collected within a 3-6 month period be abnormal before considering a patient to be within a diagnostic category. Urine Urine specimen obtained by clean catch procedure / Unknown 06/14/2025 1:12 PM EDT 06/14/2025 1:13 PM EDT Narrative [facility] - 06/16/2025 2:44 AM EDT SPLIT 06/14/2025 FROM [id number] Resulting Agency Comment Performing Organization Information Site ID: QPT Name: [facility] Address: [address] [place] [address], [address] [place] [address] Director: Caesar Blancas MD Carmita Albright MD LAB URINE ORDERABLES Final Resul t Performing Organization Address [facility] de Phone Number [facility] * Urine culture (clean catch) (06/14/2025 1:12 PM EDT) MICRO NUMBER [id number] [facility] SPECIMEN QUALITY Adequate [facility] SOURCE: ([facility]) URINE [facility] STATUS FINAL [facility] RESULT SEE NOTE [facility] Comment: No Growth Urine Urine specimen obtained by clean catch procedure / Unknown 06/14/2025 1:12 PM EDT 06/14/2025 1:13 PM EDT Narrative [facility] - 06/16/2025 2:44 AM EDT SPLIT 06/14/2025 FROM [id number] Resulting Agency Comment Performing Organization Information Site ID: QPT Name: [facility] Address: [address] [place] [address], [address] [place] [address] Director: Caesar Blancas MD Carmita Albright MD LAB MICROBIOLOGY - GENERAL ORDER YINKA Final Result Performing Organization Address [facility] de Phone Number [facility] * TSH W/REFLEX TO FT4 (06/14/2025 8:50 AM EDT) TSH W/REFLEX TO FT4 1.52 mIU/L [facility] Comment: Reference Range > or = 20 Years 0.40-4.50 Ranges First trimester 0.26-2.66 Second trimester 0.55-2.73 Third trimester 0.43-2.91 06/14/2025 8:50 AM EDT 06/14/2025 3:39 PM EDT Narrative [facility] - 06/15/2025 8:52 AM EDT MULTIPLE TESTING PRIORITIES; ROUTINE TESTING TO FOLLOW. Resulting Agency Comment Performing Organization Information Site ID: QPT Name: [facility] Address: [address] , [address] [place] [address] Director: Caesar Blancas MD Carmita Albright MD LAB BLOOD ORDERABLES Final Resul t [facility] * CBC and differential (06/14/2025 8:50 AM EDT) WHITE BLOOD CELL COUNT 4.4 3.8 - 10.8 Thousand/u L [facility] RED BLOOD CELL COUNT 4.83 3.80 - 5.10 Million/uL [facility] HEMOGLOBIN 14.3 11.7 - 15.5 g/dL [facility] HEMATOCRIT 43.4 35.0 - 45.0 % [facility] MCV 89.9 80.0 - 100.0 fL [facility] MCH 29.6 27.0 - 33.0 pg [facility] MCHC 32.9 32.0 - 36.0 g/dL [facility] Comment: For adults, a slight decrease in the calculated MCHC value (in the range of 30 to 32 g/dL) is most likely not clinically significant; however, it should be interpreted with caution in correlation with other red cell parameters and the patient's clinical condition. RDW 13.8 11.0 - 15.0 % [facility] PLATELET COUNT 250 140 - 400 Thousand/u L [facility] MPV 8.8 7.5 - 12.5 fL [facility] ABSOLUTE NEUTROPHILS 2,279 1,500 - 7,800 cells/uL [facility] ABSOLUTE LYMPHOCYTES 1,646 850 - 3,900 cells/uL [facility] ABSOLUTE MONOCYTES 427 200 - 950 cells/uL [facility] ABSOLUTE EOSINOPHILS 40 15 - 500 cells/uL [facility] ABSOLUTE BASOPHILS 9 0 - 200 cells/uL [facility] NEUTROPHILS 51.8 % [facility] LYMPHOCYTES 37.4 % [facility] MONOCYTES 9.7 % [facility] EOSINOPHILS 0.9 % [facility] BASOPHILS 0.2 % [facility] Blood Venous blood specimen / Unknown 06/14/2025 8:50 AM EDT 06/14/2025 3:39 PM EDT Narrative [facility] - 06/15/2025 8:52 AM EDT MULTIPLE TESTING PRIORITIES; ROUTINE TESTING TO FOLLOW. Resulting Agency Comment Performing Organization Information Site ID: QTW Name: [facility] Address: [address] [place] [phone] Director: Viktoria Boyle Carmita Albright MD LAB BLOOD ORDERABLES Final Resul t Performing Organization Address [facility] Co de Phone Number [facility] * Hemoglobin A1c (06/14/2025 8:50 AM EDT) Hemoglobin A1C 5.5 <5.7 % [facility] Comment: For the purpose of screening for the presence of diabetes: <5.7% Consistent with the absence of diabetes 5.7-6.4% Consistent with increased risk for diabetes (prediabetes) > or =6.5% Consistent with diabetes This assay result is consistent with a decreased risk of diabetes. Currently, no consensus exists regarding use of hemoglobin A1c for diagnosis of diabetes in children. According to [place] [employer] Association (ADA) guidelines, hemoglobin A1c <7.0% represents optimal control in non- diabetic patients. Different metrics may apply to specific patient populations. Standards of Medical Care in Diabetes(ADA). Blood Venous blood specimen / Unknown 06/14/2025 8:50 AM EDT 06/14/2025 3:39 PM EDT Narrative [facility] - 06/15/2025 8:52 AM EDT MULTIPLE TESTING PRIORITIES; ROUTINE TESTING TO FOLLOW. Resulting Agency Comment Performing Organization Information Site ID: QPT Name: [facility] Address: [address] [place] [address], [address] [place] [phone] Director: Caesar Blancas MD Carmita Albright MD LAB BLOOD ORDERABLES Final Resul t Performing Organization Address City/[facility]/ZIP Co de Phone Number [facility] * (ABNORMAL) Lipid panel (06/14/2025 8:50 AM EDT) CHOLESTEROL, TOTAL 246(H) <200 mg/dL [facility] HDL CHOLESTEROL 73 > OR = 50 mg/dL [facility] TRIGLYCERIDES 72 <150 mg/dL [facility] LDL CHOLESTEROL 156(H) mg/dL (calc) [facility] Comment: Reference range: <100 Desirable range <100 mg/dL for primary prevention; <70 mg/dL for patients with CHD or diabetic patients with > or = 2 CHD risk factors. LDL-C is now calculated using the Tom calculation, which is a validated novel method providing better accuracy than the Friedewald equation in the estimation of LDL-C. Kel DEGROOT et al. KIANA. 2013;310(19): 2703-4694 (http://education.[employer]/faq/TNO664) CHOL/HDLC RATIO 3.4 <5.0 (calc) [facility] NON HDL CHOLESTEROL 173(H) <130 mg/dL (calc) [facility] Comment: For patients with diabetes plus 1 major ASCVD risk factor, treating to a non-HDL-C goal of <100 mg/dL (LDL-C of <70 mg/dL) is considered a therapeutic option. Blood Venous blood specimen / Unknown 06/14/2025 8:50 AM EDT 06/14/2025 3:39 PM EDT Narrative [facility] - 06/15/2025 8:52 AM EDT MULTIPLE TESTING PRIORITIES; ROUTINE TESTING TO FOLLOW. Resulting Agency Comment Performing Organization Information Site ID: QPT Name: [facility] Address: [address] [place] [address], [address] [place] [phone] Director: Caesar Blancas MD Carmita Albright MD LAB BLOOD ORDERABLES Final Resul t [facility] * (ABNORMAL) Comprehensive metabolic panel (06/14/2025 8:50 AM EDT) [facility] Glucose 99 65 - 99 mg/dL [facility] Comment: Fasting reference interval BUN 15 7 - 25 mg/dL [facility] Creatinine 0.62 0.50 - 0.99 mg/dL [facility] EGFR 114 > OR = 60 mL/min/1. 73m2 [facility] BUN/CREATININE RATIO SEE NOTE: 6 - (calc) [facility] Comment: Not Reported: BUN and Creatinine are within reference range. Sodium 140 135 - 146 mmol/L [facility] Potassium, Bld 4.2 3.5 - 5.3 mmol/L [facility] Chloride 105 98 - 110 mmol/L [facility] Carbon Dioxide 28 20 - 32 mmol/L [facility] Calcium 9.9 8.6 - 10.2 mg/dL [facility] PROTEIN, TOTAL 7.1 6.1 - 8.1 g/dL [facility] ALBUMIN 4.5 3.6 - 5.1 g/dL [facility] GLOBULIN 2.6 1.9 - 3.7 g/dL (calc) [facility] ALBUMIN/GLOBULIN RATIO 1.7 1.0 - 2.5 (calc) [facility] BILIRUBIN, TOTAL 0.5 0.2 - 1.2 mg/dL [facility] ALKALINE PHOSPHATASE 81 31 - 125 U/L [facility] AST 23 10 - 30 U/L [facility] ALT 33(H) 6 - 29 U/L [facility] Blood Venous blood specimen / Unknown 06/14/2025 8:50 AM EDT 06/14/2025 3:39 PM EDT Narrative [facility] - 06/15/2025 8:52 AM EDT MULTIPLE TESTING PRIORITIES; ROUTINE TESTING TO FOLLOW. Resulting Agency Comment Performing Organization Information Site ID: QTW Name: [facility] Address: [address] [place] [phone] Director: Viktoria Boyle Carmita Albright MD LAB BLOOD ORDERABLES Final Resul t [facility] * STATUS COVID-19/FLU (06/09/2025 11:26 AM EDT) Pathologist [facility] FLU A - FLU B - SARS COV 2 RNA - Nasopharyngeal 06/09/2025 11 :26 AM EDT Carin Wren SHEAR OPERATOR AUTOMATIC POINT OF CARE TEST ENTER/EDIT O RDERABLES Final Result * POCT rapid strep A manually resulted (06/09/2025 11:26 AM EDT) Rapid Strep A Screen Negative Negative, None Detected Swab 06/09/2025 11:2 6 AM EDT Carin Wren SHEAR OPERATOR AUTOMATIC POINT OF CARE TEST ENTER/EDIT O RDERABLES Final Result * Bilateral screening mammogram with tomosynthesis (08/11/2024 3:59 PM EDT) Anatomical Region Laterality Modality Breast Bilateral Mammography 08/12/2024 10:4 4 AM EDT Impressions 08/12/2024 10:49 AM EDT Impression: No specific evidence of malignancy seen in either breast. Breast Density: There are scattered areas of fibroglandular density BiRads: BIRADS 2 - Benign Recommended follow-up: Routine Screening Mamm ELECTRONICALLY SIGNED BY: Salvatore Soto M.D. Narrative 08/12/2024 10:49 AM EDT Examination: BI MAMMOGRAM SCREENING TOMOSYNTHESIS BILATERAL Clinical History: breast ca screening Technique: Screening digital mammography study of both breasts was performed with 2-D and 3-D tomosynthesis imaging. No prior study available for comparison. Findings: Scattered areas of fibroglandular density are noted bilaterally. There is no evidence of dominant spiculated mass, grouped microcalcifications or skin thickening which would be suggestive of malignancy. A few small benign-appearing nodular densities on the left likely representing focal fibrocystic changes. Axillary lymph nodes are noted bilaterally. Procedure Note Salvatore Soto MD - 08/12/2024 Examination: BI MAMMOGRAM SCREENING TOMOSYNTHESIS BILATERAL Clinical History: breast ca screening Technique: Screening digital mammography study of both breasts wasperformed with 2-D and 3-D tomosynthesis imaging. No prior study availablefor comparison. Findings: Scattered areas of fibroglandular density are noted bilaterally.There is no evidence of dominant spiculated mass, groupedmicrocalcifications or skin thickening which would be suggestive ofmalignancy. A few small benign-appearing nodular densities on the leftlikely representing focal fibrocystic changes. Axillary lymph nodes arenoted bilaterally. IMPRESSION: Impression: No specific evidence of malignancy seen in either breast. Breast Density: There are scattered areas of fibroglandular density BiRads: BIRADS 2 - Benign Recommended follow-up: Routine Screening Mamm ELECTRONICALLY SIGNED BY: Salvatore Soto M.D. us Pablo Carol DO [facility] BI PROCEDURES Final Result * Pap Smear (07/21/2023 12:00 AM EDT) Swab Cervical swab / Unknown us Pablo Medina DO LAB CYTOLOGY ORDERABLES Final Re sult EXTERNAL LAB from Last 3 Months or Most Recently Relevant to Health Maintenance Additional Health Concerns Active Problems Noted Date Diagnosed Date Patient on antidepressant monitoring plan 2024 Baseline PHQ-9 08/07/2025 Insurance STEPHANIE FITZGERALD Care Teams Medical Lab Director Relationship Specialty Start Date End Date Carmita Albright MD [address] [place] [address] PCP - General Family Medicine 03/31/23
--- OUTSIDE RECORDS SUMMARY | 2025-08-08 03:53 | XMS_ITS | Encounter Summary ---
Author Organization [facility] Address [address] [place] [address] Care Team Providers Care Toy Assembly Supervisor Name Role Phone Carmita Albright MD Primary Care Provider [phone] Encounter Details Date Type Department Care Team (Late st Contact Info) Description 08/07/2025 Telephone [facility] [address] [place] [address] Carmita Albright MD [address] [place] [address] Social History Tobacco Use Types Packs/Day Years [...] 04/04/2024 How often do you attend chur ch or buddhism services? More than 4 times per year 04/04/2024 Do you belong to any clubs o r organizations such as sikhism groups, unions, fraternal or athletic groups, or [...] Recorded Patient Health Questionnaire-2 Score 0 06/14/2025 [facility] - Occupational Stress Questionnaire Answer Date [...] place to sleep or slept in a residential (including now)? No 04/04/2024 Comments No Sex and Gender Information Value Date Recorded Sex Assigned at Female 04/04/2024 1:53 PM EDT Legal Sex Female 6:54 PM EDT Gender Identity Female 04/04/2024 1:53 PM EDT Sexual Orientation Straight 04/04/2024 1: 53 PM EDT documented as of this encounter Miscellaneous Notes * Telephone Encounter - Anette Mahan MA - 08/07/2025 3:04 PM EDT Faxed to [facility] * Telephone Encounter - Elizabeth Camejo - 08/07/2025 2:52 PM EDT Pt called and states we referred her to [facility] for a swallow test and they do not take her insurance so she would like the referral sent to [facility]. The fax number is [phone]. documented in this encounter Plan of Treatment Upcoming Encounters Date Type Department Care Team (Late st Contact Info) Description 08/14/2025 8:30 AM EDT Ancillary Procedure [facility] [address] [facility] [address] [place] [address] 08/21/2025 3:00 PM EDT Office Visit [facility] [address] [place] [address] Carmita Albright MD [address] [place] [address] documented as of this encounter Goals Goal Patient Goal Type Associated Problems Recent Progress Patient-Stated? Author Help patient manage antidepressant medication Care Plan Patient on antidepressant monitoring plan No Carmita Albright MD Baseline PHQ-9 Care Plan Baseline PHQ-9 No Carmita Albright MD documented as of this encounter Visit Diagnoses Not on filedocumented in this encounter Additional Health Concerns Active Problems Noted Date Diagnosed Date Patient on antidepressant monitoring plan 2024 Baseline PHQ-9 08/07/2025 documented as of this encounter Care Teams Toy Assembly Supervisor Relationship Specialty Start Date End Date Carmita Albright MD [address] [place] [address] PCP - General Family Medicine 03/31/23 documented as of this encounter
--- OUTSIDE RECORDS SUMMARY | 2025-08-08 03:53 | XMS_ITS | CCD ---
Author Organization [facility] Care Team Providers Care Termite Inspector Name Role Phone DR JUANITA MEDINA Attending Unavailable CAROL, DR GRANT Admitting Unavailable CAROL, DR GRANT Consulting Unavailable CAROL, DR GRANT Attending Unavailable CAROL, DR GRANT Admitting Unavailable CAROL, DR GRANT Consulting Unavailable TISH, DR MERON Morales Consulting Unavailable Jose Ramon ROWE, [facility] Primary Care Provider Carmita Albright MD Unavailable CARIN MCDERMOTT Attending Unavailable CARMITA ALBRIGHT Attending Unavailable JUANITA MEDINA Attending Unavailable JUANITA MEDINA Referring Unavailable CARMITA ALBRIGHT Primary Care Unavailable CLEMENTINA DAUGHERTY Attending Unavailable JOSE RAMON CARMITA Edgar Primary Care Unavailable LINDA MONCADA Attending Unavailable Allergies Allergy Classification Reported Allergen(s) Allergy Type Date of Onset Reaction(s) Facility (2 sources) Aspirin; Translations: [ASPIRIN] Drug Allergy 6 [facility] Repository (2 sources) Codeine; Translations: [CODEINE] Drug Allergy 6 [facility] Repository (14 sources) Aluminum aspirin Drug Allergy 3 GI intolerance [facility] Work Phone: (14 sources) Codeine Drug Allergy 3 Itching [facility] Medications Current Medications Medication Drug Class(es) Dates Sig (Normalized) Sig (Original) ALPRAZolam 0.5 mg oral tablet (3 sources) Benzodiazepine Start: 08-07-2025 End: 04-04-2026 take 1 tablet by mouth three times daily as needed for anxiety ALPRAZolam (Xanax) 0.5 MG tablet Indications: Anxiety Take 1 tablet (0.5 mg) by mouth 3 (three) times a day as needed for anxiety 30 tablet 08/07/2025 04/04/2026 Active escitalopram 5 mg oral tablet (3 sources) Serotonin Reuptake Inhibitor Start: 08-07-2025 End: 11-05-2025 take 1 tablet by mouth once daily escitalopram (Lexapro) 5 MG tablet Indications: Anxiety Take 1 tablet (5 mg) by mouth Daily 30 tablet 2 08/07/2025 11/05/2025 Active Completed/Discontinued Medications Medication Drug Class(es) Dates Sig (Normalized) Sig (Original) metFORMIN hydrochloride 500 mg oral tablet (15 sources) Biguanide Start: 06-13-2025 End: 09-12-2025 take 1 tablet by mouth in the morning metFORMIN (Glucophage) 500 MG tablet Indications: Glucose intolerance Take 1 tablet (500 mg) by mouth in the morning and 1 tablet (500 mg) in the evening. Take with meals. 180 tablet 3 06/14/2025 08/07/2025 Discontinued (Therapy completed) Start: 05-02-2024 End: 05-02-2025 take 1 tablet by mouth in the morning metFORMIN (Glucophage) 500 MG tablet Indications: Glucose intolerance Take 1 tablet (500 mg) by mouth in the morning and 1 tablet (500 mg) in the evening. Take with meals. 60 tablet 11 05/02/2024 Active Problems Problem Classification Problem Date Documented Da te Episodic/Chronic Adjustment disorders (1 source) Reaction to severe stress, unspecified; Translations: [Reaction to severe stress, unspecified] Onset: 07-21-2025 Chronic Anxiety disorders (9 sources) Anxiety disorder, unspecified; Translations: [Anxiety] Onset: 07-21-2025 08-07-2025 Chronic Complications of surgical procedures or medical care (4 sources) Symptomatic postprocedural ovarian failure; Translations: [SYMPTOMATIC POSTPROC OVARIAN FAIL] Onset: 05-28-2022 Chronic Conditions associated with dizziness or vertigo (2 sources) Dizziness and giddiness; Translations: [Dizziness] Onset: 08-03-2025 Episodic Diabetes mellitus without complication (2 sources) Increased glucose level; Translations: [Other abnormal glucose] 06-14-2025 Episodic Genitourinary symptoms and ill-defined conditions (2 sources) Dysuria; Translations: [Dysuria] 06-14-2025 Episodic Immunizations and screening for infectious disease (1 source) Encounter for screening for human papillomavirus (HPV); Translations: [ENC SCREENING HUMAN PAPILLOMAVIRUS] Onset: 05-07-2022 Episodic Nonspecific chest pain (6 sources) Chest pain; Translations: [Other chest pain] 08-07-2025 Episodic Other circulatory disease (1 source) Orthostatic hypotension; Translations: [Orthostatic hypotension] Onset: 08-03-2025 Episodic Other gastrointestinal disorders (4 sources) Oropharyngeal dysphagia; Translations: [Dysphagia, oropharyngeal phase] 08-07-2025 Episodic Other nutritional; endocrine; and metabolic disorders (2 sources) Disorder of carbohydrate metabolism; 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 Other nutritional; endocrine; and metabolic disorders (6 sources) Weight decreased; Translations: [Abnormal weight loss] 06-14-2025 Episodic Other screening for suspected conditions (not mental disorders or infectious disease) (8 sources) Encounter for screening for malignant neoplasm of cervix; Translations: [Patient encounter status] Onset: 05-05-2022 Episodic Other upper respiratory infections (4 sources) Upper respiratory infection; Translations: [Acute upper respiratory infection, unspecified] 06-09-2025 Episodic Otitis media and related conditions (2 sources) Acute transudative otitis media; Translations: [Other acute nonsuppurative otitis media, bilateral] 06-09-2025 Episodic Residual codes; unclassified (8 sources) Tobacco user; Translations: [Tobacco use] Onset: 06-14-2025 06-14-2025 Episodic Residual codes; unclassified (6 sources) Insomnia; Translations: [Insomnia, unspecified] Onset: 06-14-2025 06-14-2025 Episodic Unclassified (3 sources) Patient on antidepressant monitoring plan Onset: 08-07-2025 08-07-2025 Unclassified (3 sources) Baseline PHQ-9 Onset: 08-07-2025 08-07-2025 Results Test Name Value Interpretation Reference Range Facility BASIC METABOLIC PANELon 07-24 Anion gap [Moles/Vol] 8 mmol/L Normal 04-06 [facility] Comment on above: Performed By: #### B MP #### [facility] [place] ([place] [address] VIR Calcium [Mass/Vol] 9.4 mg/dL Normal 8.5-10.5 [facility] Comment on above: Performed By: #### B MP #### [facility] ([address] [place] [address] VIR Chloride [Moles/Vol] 103 mmol/L Normal 98-109 [facility] Comment on above: Performed By: #### B MP #### [facility] ([address] [place] [address] VIR CO2 [Moles/Vol] 27 mmol/L Normal 22-32 [facility] Comment on above: Performed By: #### B MP #### [facility] ([address] [place] [address] VIR Creatinine [Mass/Vol] 0.99 mg/dL Normal 0.40-1.00 [facility] Comment on above: Result Comment: METH OD TRACEABLE TO IDMS STANDARD Performed By: #### B MP #### [facility] ([address] [place] [address] VIR GFR/1.73 sq M.predicted among non-blacks MDRD (S/P/Bld) [Vol rate/Area] 73 mL/min/{1.73_m2} Normal >=60 [facility] Comment on above: Result Comment: eGFR not reported due to non-numeric value for Creatinine. Reported eGFR is based on the CKD-EPI 2021 equation that does not use a race coefficient. Performed By: #### B MP #### [facility] ([address] [place] [address] VIR Glucose [Mass/Vol] 99 mg/dL Normal 65-99 [facility] Comment on above: Performed By: #### B MP #### [facility] ([address] [place] [address] VIR Potassium [Moles/Vol] 3.7 mmol/L Normal 3.5-5.0 [facility] Comment on above: Performed By: #### B MP #### [facility] ([address] [place] [address] VIR Sodium [Moles/Vol] 138 mmol/L Normal 134-146 [facility] Comment on above: Performed By: #### B MP #### [facility] ([address] [place] [address] VIR Urea nitrogen [Mass/Vol] 15 mg/dL Normal 5-23 [facility] Comment on above: Performed By: #### B MP #### [facility] ([address] [address] VIR CBC WITH AUTO DIFFERENTIALon 08-03-2025 BASOPHILS ABSOLUTE COUNT (10*3/UL) BY AUTOMATED COUNT 0.0 10*3/uL Normal 0.0-0.2 [facility] Comment on above: Performed By: #### C BCA #### [facility] ([address] [address] VIR BASOPHILS RELATIVE PERCENT BY AUTOMATED COUNT 0.1 % Normal [facility] Comment on above: Performed By: #### C BCA #### [facility] ([address] [address] VIR CELLAVISION DIFFERENTIAL TYPE AUTOMATED DIFFERENTIAL Normal [facility] Comment on above: Performed By: #### C BCA #### [facility] ([address] [address] VIR Eosinophils (Bld) [#/Vol] 0.0 10*3/uL Normal 0.0-0.4 [facility] Comment on above: Performed By: #### C BCA #### [facility] ([address] [place] [address] VIR EOSINOPHILS RELATIVE PERCENT BY AUTOMATED COUNT 0.7 % Normal [facility] Comment on above: Performed By: #### C BCA #### [facility] ([address] [place] [address] VIR Erythrocyte distribution width (RBC) [Ratio] 13.8 % Normal 11.5-15 [facility] Comment on above: Performed By: #### C BCA #### [facility] ([address] [place] [address] VIR Hematocrit (Bld) [Volume fraction] 40.6 % Normal 35-47 [facility] Comment on above: Performed By: #### C BCA #### [facility] ([address] [address] VIR Hemoglobin (Bld) [Mass/Vol] 13.8 g/dL Normal 11.7-15.5 [facility] Comment on above: Performed By: #### C BCA #### [facility] ([address] [address] VIR LYMPHOCYTES ABSOLUTE COUNT (10*3/UL) BY AUTOMATED COUNT 1.4 10*3/uL Normal 1.0-3.5 [facility] Comment on above: Performed By: #### C BCA #### [facility] ([address] [address] VIR LYMPHOCYTES RELATIVE PERCENT BY AUTOMATED COUNT 21.9 % Normal [facility] Comment on above: Performed By: #### C BCA #### [facility] ([address] [address] VIR MCH (RBC) [Entitic mass] 29.5 pg Normal 27-34 [facility] Comment on above: Performed By: #### C BCA #### [facility] ([address] [address] VIR MCHC (RBC) [Mass/Vol] 34.0 g/dL Normal 32-36 [facility] Comment on above: Performed By: #### C BCA #### [facility] ([address] [address] VIR MCV (RBC) [Entitic vol] 87 fL Normal 80-100 [facility] Comment on above: Performed By: #### C BCA #### [facility] ([address] [address] VIR MONOCYTES ABSOLUTE COUNT (10*3/UL) BY AUTOMATED COUNT 0.6 10*3/uL Normal 0.0-0.9 [facility] Comment on above: Performed By: #### C BCA #### [facility] ([address] [address] VIR MONOCYTES RELATIVE PERCENT BY AUTOMATED COUNT 9.5 % Normal [facility] Comment on above: Performed By: #### C BCA #### [facility] ([address] [address] VIR NEUTROPHILS ABSOLUTE COUNT BY AUTOMATED COUNT 4.3 10*3/uL Normal 1.5-6.6 [facility] Comment on above: Performed By: #### C BCA #### [facility] ([address] [address] VIR NEUTROPHILS RELATIVE PERCENT BY AUTOMATED COUNT 67.8 % Normal [facility] Comment on above: Performed By: #### C BCA #### [facility] ([address] [address] VIR Platelet mean volume (Bld) [Entitic vol] 6.9 fL Low 7-12 [facility] Comment on above: Performed By: #### C BCA #### [facility] ([address] [address] VIR Platelets (Bld) [#/Vol] 294 10*3/uL Normal 150-450 [facility] Comment on above: Performed By: #### C BCA #### [facility] ([address] [place] [address] VIR RBC COUNT 4.67 X10E12/L Normal 3.8-5.2 [facility] Comment on above: Performed By: #### C BCA #### [facility] ([address] [place] [address] VIR WBC (Bld) [#/Vol] 6.3 10*3/uL Normal 4-11 [facility] Comment on above: Performed By: #### C BCA #### [facility] ([facility]) [address] [place] [address]. [place] [address] VIR MAGNESIUMon 08-03-2025 Magnesium [Mass/Vol] 2.2 mg/dL Normal 1.8-2.6 [facility] Comment on above: Performed By: #### M G #### [facility] ([address] [place] [address] VIR TROPONIN I, HIGH SENSITIVITY 0 HOURon 08-03-2025 TROPONIN I, HIGH SENSITIVITY <^2 Normal <16 [facility] Comment on above: Performed By: #### T NIHS0 #### [facility] ([address] [place] [address] VIR BASIC METABOLIC PANELon 08-2 Anion gap [Moles/Vol] 7 mmol/L Normal 5-15 [facility] Comment on above: Performed By: #### B MP #### [facility] ([address] [place] [address] VIR Calcium [Mass/Vol] 9.2 mg/dL Normal 8.5-10.5 [facility] Comment on above: Performed By: #### B MP #### [facility] ([address] [place] [address] VIR Chloride [Moles/Vol] 106 mmol/L Normal 98-109 [facility] Comment on above: Performed By: #### B MP #### [facility] ([place] [address] [address] VIR CO2 [Moles/Vol] 22 mmol/L Normal 22-32 [facility] Comment on above: Performed By: #### B MP #### [facility] ([address] [place] [address] VIR Creatinine [Mass/Vol] 0.61 mg/dL Normal 0.40-1.00 [facility] Comment on above: Result Comment: METH OD TRACEABLE TO IDMS STANDARD Performed By: #### B MP #### [facility] ([address] [place] [address] VIR EGFR (CKD-EPI) NON-RACE DEPENDENT >^90 Normal >=60 [facility] Comment on above: Result Comment: eGFR not reported due to non-numeric value for Creatinine. Reported eGFR is based on the CKD-EPI 2020 equation that does not use a race coefficient. Performed By: #### B MP #### [facility] ([address] [place] [address] VIR Glucose [Mass/Vol] 117 mg/dL High 65-99 [facility] Comment on above: Performed By: #### B MP #### [facility] ([address] [place] [address] VIR Potassium [Moles/Vol] 3.4 mmol/L Low 3.5-5.0 [facility] Comment on above: Performed By: #### B MP #### [facility] ([address] [place] [address] VIR Sodium [Moles/Vol] 135 mmol/L Normal 134-146 [facility] Comment on above: Performed By: #### B MP #### [facility] ([address] [place] [address] VIR Urea nitrogen [Mass/Vol] 15 mg/dL Normal 5-23 [facility] Comment on above: Performed By: #### B MP #### [facility] ([address] [address] VIR CBC WITH AUTO DIFFERENTIALon 07-21-2025 BASOPHILS ABSOLUTE COUNT (10*3/UL) BY AUTOMATED COUNT 0.0 10*3/uL Normal 0.0-0.2 [facility] Comment on above: Performed By: #### C BCA #### [facility] ([address] [address] VIR BASOPHILS RELATIVE PERCENT BY AUTOMATED COUNT 0.4 % Normal [facility] Comment on above: Performed By: #### C BCA #### [facility] ([address] [address] VIR CELLAVISION DIFFERENTIAL TYPE AUTOMATED DIFFERENTIAL Normal [facility] Comment on above: Performed By: #### C BCA #### [facility] ([address] [address] VIR Eosinophils (Bld) [#/Vol] 0.0 10*3/uL Normal 0.0-0.4 [facility] Comment on above: Performed By: #### C BCA #### [facility] ([address] [address] VIR EOSINOPHILS RELATIVE PERCENT BY AUTOMATED COUNT 0.5 % Normal [facility] Comment on above: Performed By: #### C BCA #### [facility] ([address] [address] VIR Erythrocyte distribution width (RBC) [Ratio] 13.8 % Normal 11.5-15 [facility] Comment on above: Performed By: #### C BCA #### [facility] ([address] [address] VIR Hematocrit (Bld) [Volume fraction] 36.8 % Normal 35-47 [facility] Comment on above: Performed By: #### C BCA #### [facility] ([address] [address] VIR Hemoglobin (Bld) [Mass/Vol] 12.7 g/dL Normal 11.7-15.5 [facility] Comment on above: Performed By: #### C BCA #### [facility] ([address] [address] VIR LYMPHOCYTES ABSOLUTE COUNT (10*3/UL) BY AUTOMATED COUNT 1.4 10*3/uL Normal 1.0-3.5 [facility] Comment on above: Performed By: #### C BCA #### [facility] ([address] [address] VIR LYMPHOCYTES RELATIVE PERCENT BY AUTOMATED COUNT 20.8 % Normal [facility] Comment on above: Performed By: #### C BCA #### [facility] ([address] [address] VIR MCH (RBC) [Entitic mass] 29.9 pg Normal 27-34 [facility] Comment on above: Performed By: #### C BCA #### [facility] ([address] [address] VIR MCHC (RBC) [Mass/Vol] 34.4 g/dL Normal 32-36 [facility] Comment on above: Performed By: #### C BCA #### [facility] ([address] [address] VIR MCV (RBC) [Entitic vol] 87 fL Normal 80-100 [facility] Comment on above: Performed By: #### C BCA #### [facility] ([address] [address] VIR MONOCYTES ABSOLUTE COUNT (10*3/UL) BY AUTOMATED COUNT 0.6 10*3/uL Normal 0.0-0.9 [facility] Comment on above: Performed By: #### C BCA #### [facility] ([address] [address] VIR MONOCYTES RELATIVE PERCENT BY AUTOMATED COUNT 8.6 % Normal [facility] Comment on above: Performed By: #### C BCA #### [facility] ([address] [address] VIR NEUTROPHILS ABSOLUTE COUNT BY AUTOMATED COUNT 4.7 10*3/uL Normal 1.5-6.6 [facility] Comment on above: Performed By: #### C BCA #### [facility] ([address] [address] VIR NEUTROPHILS RELATIVE PERCENT BY AUTOMATED COUNT 69.7 % Normal [facility] Comment on above: Performed By: #### C BCA #### [facility] ([address] [address] VIR Platelet mean volume (Bld) [Entitic vol] 6.7 fL Low 7-12 [facility] Comment on above: Performed By: #### C BCA #### [facility] ([address] [address] VIR Platelets (Bld) [#/Vol] 266 10*3/uL Normal 150-450 [facility] Comment on above: Performed By: #### C BCA #### [facility] ([address] [address] VIR RBC COUNT 4.24 X10E12/L Normal 3.8-5.2 [facility] Comment on above: Performed By: #### C BCA #### [facility] ([address] [address] VIR WBC (Bld) [#/Vol] 6.7 10*3/uL Normal 4-11 [facility] Comment on above: Performed By: #### C BCA #### [facility]) [address] [place] [address] [place] [address] VIR MAGNESIUMon 07-21-2025 Magnesium [Mass/Vol] 1.9 mg/dL Normal 1.8-2.6 [facility] Comment on above: Performed By: #### M G #### [facility] ([facility]) [address] [place] [address] [place] [address] VIR TROPONIN I, HIGH SENSITIVITY 0 HOURon 07-21-2025 TROPONIN I, HIGH SENSITIVITY <^2 Normal <16 [facility] Comment on above: Performed By: #### T NIHS0 #### [facility] ([address] [place] [address] VIR XR CHEST 2 VWSon 07-21-2025 XR CHEST 2 VWS XR CHEST 2 VWS HISTORY: Chest pain COMPARISON: None FINDINGS: PA and lateral views of the chest were obtained. Heart size is normal. Lungs demonstrate no significant airspace consolidation or vascular congestion. There is no pneumothorax or pleural effusion. IMPRESSION: * No acute abnormality. Finalized by Cl Gunn MD on 07/21/2025 3:30 AM Normal [facility] Laboratory - Microbiology an d Antimicrobial susceptibilityon 06-09-2025 SARS-CoV-2 (COVID-19) RNA MELISSA+probe Ql (Unsp spec) - [facility] S. pyogenes Ag Ql (Throat) Negative Negative, None Detected [facility] No Panel Informationon 06-09 FLU A - [facility] FLU B - [facility] BI MAMMOGRAM SCREENING TOMOS YNTHESIS BILATERALon 08-11-2024 BI MAMMOGRAM SCREENING TOMOSYNTHESIS BILATERAL This is a summary report. The complete report is available in the patient's medical record. If you cannot access the medical record, please contact the sending organization for a detailed fax or copy. Examination: BI MAMMOGRAM SCREENING TOMOSYNTHESIS BILATERAL Clinical [...] changes. Axillary lymph nodes are noted bilaterally. IMPRESSION: Impression: No specific evidence of malignancy seen in either breast. Breast Density: There are scattered areas of fibroglandular density BiRads: BIRADS 2 - Benign Recommended follow-up: Routine Screening Mamm ELECTRONICALLY SIGNED BY: Salvatore Soto M.D. Normal Not Available IGP,APTIMA HPV,AGE GDLNon AGE GDLN ACOG TESTING Note . [facility] Comment on above: TESTS RESULT FLAG UN ITS REF RANGE LAB Clinician Provided Cytology Information Source.............Vagina No. of containers..01 ThinPrep Vial Age Algo ACOG Irma... 30-65 01 FLAG LEGEND: L-Low Normal,H-High Normal,LL-Alert Low,HH-Alert High <-Panic Low,>-Panic High,A-Abnormal,AA-Critical Abnormal Performed at: 01 =G [address] [address] Aicha Davis MD, HPV APTIMA Negative Negative [facility] Comment on above: This nucleic acid am plification test detects fourteen high- risk HPV types (16,18,31,33,35,39,45,51,52,56,58,59,66,68) without differentiation. Performed at: =G - [facility] [id number] Diplomatic Officer: Aicha Davis MD, Phone: [phone] Performed at: WB - [facility], [place] [id number] Diplomatic Officer: Aicha Davis MD, Phone: [phone] IGP, APTIMA HPV, RFX 16/18,45 Note . [facility] Comment on above: TESTS RESULT FLAG UN ITS REF RANGE LAB DIAGNOSIS: 02 NEGATIVE FOR INTRAEPITHELIAL LESION OR MALIGNANCY. THIS SPECIMEN WAS RESCREENED PART OF OUR PROFESSOR OF ART HISTORY PROGRAM. Specimen adequacy: 02 Satisfactory for evaluation. Performed by: Esperanza Patel, Scientific Linguist (ASCP) QC reviewed by: Esperanza Carvajal, Scientific Linguist (ASCP) . 02 Note: Note 02 The Pap smear is a screening test designed to aid in the detection of premalignant and malignant conditions of the uterine cervix. It is not a diagnostic procedure and should not be used as the sole means of detecting cervical cancer. Both false-positive and false-negative reports do occur. Test Methodology: Note 02 This liquid based ThinPrep(R) pap test was screened with the use of an image guided system. HPV Genotype Reflex Note 02 Criteria not met, HPV Genotype not performed. FLAG LEGEND: L-Low Normal,H-High Normal,LL-Alert Low,HH-Alert High <-Panic Low,>-Panic High,A-Abnormal,AA-Critical Abnormal Performed at: [address] [address] Aicha Davis MD, [facility] Cytology Cervical or vaginal smear or scraping studyOrdered By: Ashlyn Calles on 07-21-2023 [facility] XR DEXA BONE DENSITYon 05-28 XR DEXA BONE DENSITY EXAMINATION: XR DEX A BONE DENSITY, 05/28/2022 3:36 PM EDT HISTORY: Symptomatic postprocedural ovarian failure COMPARISON: None. TECHNIQUE: Dual-energy X-ray absorptiometry (DEXA) bone density study performed for the axial skeleton. FINDINGS: SPINE ANALYSIS: Average bone mineral density is 1.131 g/cm2. T-score (standard deviation relative to young adult mean): -0.6 . HIP ANALYSIS: Lowest bone mineral density is within the femoral trochanter, 0.800 g/cm2. T-score (standard deviation relative to young adult mean): -0.4 . IMPRESSION: World [employer] Classification: Normal - Low Fracture Risk Electronically authenticated by: MERON WINSTON Date: 2022-05-28 17:15 Normal [facility] PAP ACOG PANEL 2: 30 to 65on 05-08-2022 . . Normal [facility] Comment on above: Result Comment: Perf ormed at: WB Performed By: #### [id number] #### [facility] [address] [address] [address] Cruz Moy Age Gdln ACOG Testing 30-65 Normal [facility] Comment on above: Performed By: #### [id number] #### [facility] [address] [place], [place] [address] Dr. Cruz Moy DIAGNOSIS: Comment Normal [facility] Comment on above: Result Comment: NEGA TIVE FOR INTRAEPITHELIAL LESION OR MALIGNANCY. Performed at: WB Performed By: #### [id number] #### [facility] [address] [address] [address] Cruz Moy HPV Aptima Negative Normal Negative [facility] Comment on above: Result Comment: This nucleic acid amplification test detects fourteen high-risk HPV types (16,18,31,33,35,39,45,51,52,56,58,59,66,68) without differentiation. Performed at: =G Performed By: #### [id number] #### [facility] [address] [address] [address] Cruz Moy Methodology: Comment Normal [facility] Comment on above: Result Comment: This liquid based ThinPrep(R) pap test was screened with the use of an image guided system. Performed at: WB Performed By: #### [id number] #### [facility] [address] [place] [address] Dr. Cruz Moy Note: Comment Normal [facility] Comment on above: Result Comment: The Pap smear is a screening test designed to aid in the detection of premalignant and malignant conditions of the uterine cervix. It is not a diagnostic procedure and should not be used as the sole means of detecting cervical cancer. Both false-positive and false-negative reports do occur. . Performed at: WB Performed By: #### [id number] #### [facility] [address] [place] [address] Dr. Cruz Moy Performed by: Comment Normal [facility] Comment on above: Result Comment: Nai Parks Scientific Linguist (ASCP) Performed at: WB Performed By: #### [id number] #### [facility] [address] [place] [address] Dr. Cruz Moy Specimen adequacy: Comment Normal [facility] Comment on above: Result Comment: Sati sfactory for evaluation. No endocervical component is identified. Performed at: WB Performed By: #### [id number] #### [facility] [address] [address] [address] Cruz Moy Vital Signs Date Time Vital Sign Value Performing Clinician Faci lity 08-07-2025 [id number] Body height 164.5 cm Carmita Albright MD Work Phone: [facility] 08-07-2025 12:19-0400 Body mass index (BMI) [Ratio] 23.07 kg/m2 Carmita Albright MD Work Phone: [facility] 08-07-2025 12:19-0400 Body weight 62.41 kg Carmita Albright MD Work Phone: [facility] 08-07-2025 12:19-0400 Diastolic blood pressure 68 mm[Hg] Carmita Albright MD Work Phone: [facility] 08-07-2025 12:19-0400 Heart rate 67 /min Carmita Albright MD Work Phone: [facility] 08-07-2025 12:19-0400 Respiratory rate 18 /min Carmita Albright MD Work Phone: [facility] 08-07-2025 12:19-0400 SaO2% (BldA) [Mass fraction] 99 % Carmita Albright MD Work Phone: [facility] 08-07-2025 12:19-0400 Systolic blood pressure 112 mm[Hg] Carmita Albright MD Work Phone: [facility] 06-14-2025 08:23-0400 Body height 164.5 cm Carmita Albright MD Work Phone: [facility] 06-14-2025 08:23-0400 Body mass index (BMI) [Ratio] 23.54 kg/m2 Carmita Albright MD Work Phone: [facility] 06-14-2025 08:23-0400 Body weight 63.69 kg Carmita Albright MD Work Phone: [facility] 06-14-2025 08:23-0400 Diastolic blood pressure 76 mm[Hg] Carmita Albright MD Work Phone: [facility] 06-14-2025 08:23-0400 Heart rate 112 /min Carmita Albright MD Work Phone: [facility] 06-14-2025 08:23-0400 Respiratory rate 18 /min Carmita Albright MD Work Phone: [facility] 06-14-2025 08:23-0400 SaO2% (BldA) [Mass fraction] 100 % Carmita Albright MD Work Phone: [facility] 06-14-2025 08:23-0400 Systolic blood pressure 128 mm[Hg] Carmita Albright MD Work Phone: [facility] 06-09-2025 11:02-0400 Body height 164.5 cm Carin Mcdermott [employer] VETERINARIAN Work Phone: [facility] 06-09-2025 11:02-0400 Body mass index (BMI) [Ratio] 23.51 kg/m2 Carin Mcdermott [employer]OUL[employer] VETERINARIAN Work Phone: [facility] 06-09-2025 11:02-0400 Body temperature 97.59 [degF] Carin Mcdermott POULTRY VETERINARIAN Work Phone: [facility] 06-09-2025 11:02-0400 Body weight 63.59 kg Carin Mcdermott POULTRY VETERINARIAN Work Phone: [facility] 06-09-2025 11:02-0400 Diastolic blood pressure 70 mm[Hg] Carin Mcdermott POULTRY VETERINARIAN Work Phone: [facility] 06-09-2025 11:02-0400 Heart rate 87 /min Carin Mcdermott POULTRY VETERINARIAN Work Phone: [facility] 06-09-2025 11:02-0400 SaO2% (BldA) [Mass fraction] 99 % Carin Mcdermott POULTRY VETERINARIAN Work Phone: [facility] 06-09-2025 11:02-0400 Systolic blood pressure 110 mm[Hg] Carin Mcdermott POULTRY VETERINARIAN Work Phone: [facility] 07-28-2024 11:38-0400 Body height 164.5 cm Juanita Carol DO Work Phone: [facility] 07-28-2024 11:38-0400 Body mass index (BMI) [Ratio] 24.48 kg/m2 Juanita Carol DO Work Phone: [facility] 07-28-2024 11:38-0400 Body weight 66.22 kg Juanita Carol DO Work Phone: [facility] 07-28-2024 11:38-0400 Diastolic blood pressure 76 mm[Hg] Juanita Carol DO Work Phone: [facility] 07-28-2024 11:38-0400 Systolic blood pressure 110 mm[Hg] Juanita Carol DO Work Phone: [facility] Healthcare Encounters Encounter Date Encounter Type Care Provider Facility Start: 08-07-2025 End: 08-07-2025 Bamboo flowsheet Carmita Albright MD Work Phone: [facility] Start: 08-07-2025 End: 08-07-2025 Bamboo flowsheet Carmita Albright MD Work Phone: [facility] Start: 08-07-2025 End: 08-07-2025 Telephone encounter Carmita Albright MD Work Phone: [facility] Start: 08-07-2025 End: 08-07-2025 Office outpatient visit 25 minutes Carmita Albright MD Work Phone: [facility] Comment on above: Weight loss (Primary Dx); Anxiety; Oropharyngeal dysphagia; Other chest pain Start: 08-03-2025 End: 08-03-2025 Emergency department patient visit [facility] Start: 07-21-2025 End: 07-21-2025 Emergency department patient visit [facility] Start: 06-14-2025 End: 06-14-2025 Bamboo flowsheet Carmita Albright MD Work Phone: [facility] Start: 06-14-2025 End: 06-14-2025 Bamboo flowsheet Carmita Albright MD Work Phone: [facility] Start: 06-14-2025 End: 06-14-2025 Patient encounter status Carmita Albright MD Work Phone: [facility] Work Phone: Start: 06-14-2025 End: 06-14-2025 Periodic preventive med est patient 40-64yrs Carmita Albright MD Work Phone: [facility] Comment on above: Routine general medi anna examination at a health care facility (Primary Dx); Tobacco abuse; Glucose intolerance; Dysuria; Elevated glucose; Breast cancer screening by mammogram; Weight loss Start: 06-14-2025 End: 06-14-2025 ambulatory CARMITA ALBRIGHT Not Available Start: 06-09-2025 End: 06-09-2025 Bamboo flowsheet Carin Mcdermott P[employer] VETERINARIAN Work Phone: [facility] Start: 06-09-2025 End: 06-09-2025 Bamboo flowsheet Carinreji Mcdermott [employer] VETERINARIAN Work Phone: [facility] Start: 06-09-2025 End: 06-09-2025 Office outpatient visit 15 minutes Carin Mcdermott [employer]OUL[employer] V[employer]ERIN[employer]IAN Work Phone: [facility] Comment on above: Upper respiratory tr act infection, unspecified type (Primary Dx); Sore throat; Acute effusion of both middle ears Start: 06-09-2025 End: 06-09-2025 ambulatory CARIN MAJORBoom Not Available Start: 08-11-2024 End: 08-11-2024 ambulatory JUANITA CAROL Not Available Start: 07-28-2024 End: 07-28-2024 Bamboo flowsheet Juanita Carol DO Work Phone: [facility] Start: 07-28-2024 End: 08-04-2024 Clinisync Result Encounter Juanita Carol DO Work Phone: [facility] Unsolicited Start: 07-28-2024 End: 08-04-2024 Clinisync Result Encounter Juanita Carol DO Work Phone: [facility] Unsolicited Start: 07-28-2024 End: 07-28-2024 Patient encounter procedure Juanita Carol DO Work Phone: [facility] Start: 07-28-2024 End: 07-28-2024 Periodic preventive med est patient 40-64yrs Juanita Carol DO Work Phone: [facility] Comment on above: Well woman exam with routine gynecological exam; Breast cancer screening by mammogram Start: 07-28-2024 End: 07-28-2024 ambulatory JUANITA MEDINA Not Available Start: 05-28-2022 End: 05-29-[address] JUANITA MEDINA Facility:[facility] Start: 05-05-2022 End: 05-05-[address] JUANITA MEDINA Facility:[facility] Procedures Date Procedure Procedure Detail Performing Clinician Start: 06-14-2025 H/O: hysterectomy History of hysterectomy Carmita Albright MD Work Phone: Start: 06-09-2025 Iaadiadoo streptococcus group a Carin Mcdermott [employer] VETERIN[employer]IAN Work Phone: Start: 06-09-2025 STATUS COVID-19/FLU Carin Mcdermott [employer] VETERINARIAN Work Phone: Start: 08-11-2024 Mammography Carin Mcdermott [employer]OULTRY VETERINARIAN Work Phone: Start: 07-28-2024 IGP,APTIMA HPV,AGE GDLN Juanitapamela Whitmoreo DO Work Phone: Start: 07-21-2023 Cytp cerv/vag auto thin layer prep mnl screen Spendjio DO Work Phone: Plan of Treatment Date Care Activity Detail Author Start: 05-22-2026 Influenza vaccination Influenza Vacc ine (#1) [facility] Comment on above: Postponed from 07/24 (Patient Refused) Start: 08-21-2025 End: 08-21-2025 Patient encounter procedure 08/21/2025 3:00 PM EDT [facility] [address] [facility] [place] [address] Carmita Albright MD [address] [facility] [place] [address] [facility] Start: 08-14-2025 End: 08-14-2025 Professional / ancillary services management 08/14/2025 8:30 AM EDT Ancillary Procedure [facility] [address] [facility] [address] [address] [facility] Start: 08-11-2025 Screening for malign ant neoplasm of breast Mammogram [facility] Start: 08-07-2025 End: 08-07-2026 CT Chest WO contrast CT chest wo IV contrast Imaging Routine Other chest pain Expected: 08/07/2025, Expires: 08/07/2026 [facility] Work Phone: Comment on above: Expected: 08/07/2025 , Expires: 08/07/2026 Start: 08-07-2025 End: 08-07-2026 RF Esophagus Views W barium contrast PO FL esophagus barium swallow Imaging Routine Weight loss Oropharyngeal dysphagia Other chest pain Expected: 08/07/2025, Expires: 08/07/2026 [facility] Comment on above: Expected: 08/07/2025 , Expires: 08/07/2026 Start: 08-07-2025 End: 08-07-2025 Patient encounter procedure 08/07/2025 12:20 PM EDT Office Visit [address] [place] [id number] Carmita Albright MD [address] [place], [place] [id number] Arrived [facility] Comment on above: Arrived Start: 07-24-2025 Influenza vaccination Influenza Vacc ine (#1) [facility] Start: 06-14-2025 End: 06-14-2026 Bacteria identified in Urine by Culture Urine culture (clean catch) Microbiology Routine Dysuria Expected: 06/14/2025 (Approximate), Expires: 06/14/2026 [facility] Comment on above: Expected: 06/14/2025 (Approximate), Expires: 06/14/2026 Start: 06-14-2025 End: 06-14-2026 CBC W Auto Differential panel - Blood CBC and differential Lab Routine Routine general medical examination at a health care facility Glucose intolerance Elevated glucose Expected: 06/14/2025 (Approximate), Expires: 06/14/2026 [facility] Work Phone: Comment on above: Expected: 06/14/2025 (Approximate), Expires: 06/14/2026 Start: 06-14-2025 End: 06-14-2026 Comprehensive metabolic 2000 panel - Serum or Plasma Comprehensive metabolic panel Lab Routine Routine general medical examination at a health care facility Glucose intolerance Elevated glucose Expected: 06/14/2025, Expires: 06/14/2026 [facility] Comment on above: Expected: 06/14/2025 , Expires: 06/14/2026 Start: 06-14-2025 End: 08-15-2026 DBT Breast - bilateral screening Bilateral screening mammogram with tomosynthesis Imaging Routine Breast cancer screening by mammogram Expected: 06/14/2025, Expires: 08/15/2026 [facility] Comment on above: Expected: 06/14/2025 , Expires: 08/15/2026 Start: 06-14-2025 End: 06-14-2026 Hemoglobin A1c/Hemoglobin.total in Blood Hemoglobin A1c Lab Routine Routine general medical examination at a [facility] Glucose intolerance Elevated glucose Expected: 06/14/2025 (Approximate), Expires: 06/14/2026 [facility] Comment on above: Expected: 06/14/2025 (Approximate), Expires: 06/14/2026 Start: 06-14-2025 End: 06-14-2026 Lipid 1996 panel - Serum or Plasma Lipid panel Lab Routine Routine general medical examination at a [facility] care facility Glucose intolerance Elevated glucose Expected: 06/14/2025 (Approximate), Expires: 06/14/2026 [facility] Comment on above: Expected: 06/14/2025 (Approximate), Expires: 06/14/2026 Start: 06-14-2025 End: 06-14-2026 Microalbumin/Creatinine panel in random Urine Microalbumin / creatinine urine ratio Lab Routine Routine general medical examination at a [facility] care facility Glucose intolerance Elevated glucose Expected: 06/14/2025 (Approximate), Expires: 06/14/2026 [facility] Comment on above: Expected: 06/14/2025 (Approximate), Expires: 06/14/2026 Start: 06-14-2025 End: 06-14-2026 TSH W/REFLEX TO FT4 TSH W/REFLEX TO FT4 Lab Routine Weight loss Expected: 06/14/2025 (Approximate), Expires: 06/14/2026 [facility] Comment on above: Expected: 06/14/2025 (Approximate), Expires: 06/14/2026 Start: 06-14-2025 End: 06-14-2025 Patient encounter procedure 06/14/2025 8:20 AM EDT Office Visit [facility] [address] [place] [id number] Carmita Albright MD [address] [facility] [place] [address] Arrived [facility] Comment on above: Arrived Start: 06-09-2025 End: 06-09-2025 Patient encounter procedure 06/09/2025 11:00 AM EDT Office Visit [facility] [address] [facility] [phone] Carin Mcdermott NP [address] [facility] [address] Arrived [facility] Comment on above: Arrived Start: 07-28-2024 End: 09-27-2025 MG Breast - bilateral Screening Bilateral screening mammogram Imaging Routine Breast cancer screening by mammogram Expected: 07/28/2024 (Approximate), Expires: 09/27/2025 [facility] Work Phone: Comment on above: Expected: 07/28/2024 (Approximate), Expires: 09/27/2025 Start: 07-28-2024 End: 07-28-2024 Patient encounter procedure 07/28/2024 11:00 AM EDT Office Visit [facility] [address] [place] [address] Juanita Medina DO [address] [facility] [address] [place], [place] [id number] Arrived [facility] Comment on above: Arrived Start: 07-24-2024 Influenza vaccination Influenza Vacc ine (#1) [facility] Start: 2023 Screening for malign ant neoplasm of breast Mammogram [facility] THIN PREP TIS PAP AN D HR HPV DNA THIN PREP TIS PAP AND HR HPV DNA Pathology and Cytology Routine Well woman exam with routine gynecological exam Ordered: 07/28/2024 [facility] Comment on above: Ordered: 07/28/2024 Immunizations Immunization Date Immunization Notes Care Provider Shashank short 09-02-2022 tetanus toxoid, redu octavio diphtheria toxoid, and acellular pertussis vaccine, adsorbed Carmita Albright MD Work Phone: [facility] 04-24-2005 tetanus toxoid, redu octavio diphtheria toxoid, and acellular pertussis vaccine, adsorbed Carmita Albright MD Work Phone: [facility] Healthcare Payers Date Payer Category Payer Private Health Insurance DOROTHY FITZGERALD [id number] 2024 Unknown [id number] 2023 Unknown [employer] [id number] 2023-Present [address] [place] [id number] 2023 Unknown [id number] 1983 Unknown [id number] 1983 Unknown [id number] 1983 Unknown [id number] 1259 1983 Unknown [id number] 1259 1983 Unknown [id number] 1259 1983 Unknown [id number] 1259 1983 Unknown [id number] 1286 1983 Unknown [id number] 1959 Unknown [id number] Social History Date Type Detail Facility Start: 05-11-2023 Tobacco smoking stat [facility] Smokes tobacco daily [facility] History of tobacco use Cigarette Smoker [facility] Start: 05-02-2024 End: 07-28-2024 Alcoholic beverage intake Current drinker of alcohol (finding) [facility] Start: 04-04-2024 End: 07-28-2024 Alcoholic beverage intake [facility] Start: 04-04-2024 End: 06-14-2025 Social connection and isolation panel [facility] Do you belong to any clubs or organizations such as anabaptist groups, unions, fraternal or athletic groups, or school groups? No [facility] How often do you att end meetings of the clubs or organizations you belong to? Patient declined [facility] Are you now , , , , never or living with a partner? [facility] How often to you hav e a drink containing alcohol? Monthly or less [facility] How many standard dr inks containing alcohol do you have on a typical day? 1 or 2 [facility] How often do you hav e 6 or more drinks on 1 occasion? Never [facility] Do you feel stress - tense, restless, nervous, or anxious, or unable to sleep at night because your mind is troubled all the time - these days [OSQ] To some extent [facility] (I/We) worried wheth er (my/our) food would run out before (I/we) got money to buy more. Never true [facility] Start: 05-11-2023 Tobacco Comment 5 or less cigarettes /day [facility] Start: 05-11-2023 Alcohol Comment Alcohol: 3-4 drinks/monthly or less. Caffeine: 3-4 cups/day coffee; soda [facility] Start: 1985 Sex assigned at Female [facility] Start: 04-04-2024 Gender identity Identifies as female gender (finding) [facility] Start: 04-04-2024 Sexual orientation Heterosexual (fin ding) [facility] Start: 06-09-2025 Tobacco smoking stat [facility] Ex-smoker [facility] History of tobacco use Current smoker [facility] Start: 06-09-2025 End: 08-07-2025 Alcoholic beverage intake Ex-drinker (finding) [facility] Start: 06-09-2025 Tobacco Comment 5 or less ciga rettes/day stopped smoking cigarettes 2022. [facility] Start: 06-09-2025 Alcohol Comment Alcohol: 3-4 drinks/monthly or less. Caffeine: 2 cups/day coffee; soda [facility] Healthcare Goals Date Patient Goal Desired Activity /State Personal health goal Functional Status Date Assessment Result Facility 06-14-2025 Patient Health Quest ionnaire 2 item (PHQ-2) [Reported] [facility] Telephone encounter Note 08-07-2025 Telephone Encounter - Elizabeth Camejo - 08/07/2025 2:52 PM EDT Note Date & Type Note Facility 08-07-2025 Telephone encount er Note Pt called and states we referred [facility] and they do not take her insurance so she would like the referral sent to [facility]. The fax number is [phone]. [facility] Note 08-07-2025 Telephone Encounter - Elizabeth Camejo - 08/07/2025 2:52 PM EDT Note Date & Type Note Facility 08-07-2025 Miscellaneous Notes Formattin g of this note might be different from the original. Pt called and states we referred her to [facility] for a swallow test and they do not take her insurance so she would like the referral sent to M[facility] Sl[facility]. The fax number is [phone]. documented in this encounter [facility] History of Present illness Narrative 08-07-2025 Carmita Albright MD - 08/07/2025 12:20 PM EDT Note Date & Type Note Facility 08-07-2025 History of Presen t illness Narrative Images from the original note were not [...] impending divorce and work-related issues. She has been experiencing these symptoms for about 4 to 5 [...] Sitting, BP Cuff Size: Adult) Pulse 67 Resp 18 Ht 5' 4.75 Wt 137 lb 9.6 oz SpO2 99% BMI 23.07 kg/m Physical Exam Constitutional: Appearance: Normal appearance. She [...] List Assessment & Plan Weight loss Orders: VETERINARY RADIOLOGIST videofluoroscopic swallow study; Future Anxiety Orders: escitalopram (Lexapro) 5 MG tablet; Take 1 tablet (5 mg) by mouth Daily Oropharyngeal dysphagia Orders: VETERINARY RADIOLOGIST videofluoroscopic swallow study; Future Other chest pain Orders: CT chest wo IV contrast; Future VETERINARY RADIOLOGIST videofluoroscopic swallow study; Future Consider ppi Assessment & Plan 1. Anxiety: - Symptoms suggest anxiety, potentially exacerbated by stress from impending divorce and work-related issues. - Discussed the possibility of side effects from gummies consumed in mid-June 2025, but these are unlikely to be the cause of current symptoms. Counseling on anxiety management was provided. - Escitalopram prescribed at a daily dose of 1 tablet, with potential side effects including increased appetite discussed. Xanax prescribed for use as needed during severe anxiety episodes. Advised to maintain regular meals, particularly breakfast and lunch, and to monitor caffeine intake as it can lower blood sugar levels. 2. Chest pain: - A CT scan of the chest and lungs will be ordered to investigate the cause of chest pain. 3. Dysphagia: - A swallow study will be conducted at [facility] [facility] to ensure there are no blockages or other issues with the ability to swallow food. 4. Prediabetes: - Metformin will be discontinued. Follow-up: A follow-up appointment is scheduled in 2 weeks or sooner if her condition worsens. Send swallow study documented in this encounter [facility] History of Present illness Narrative 06-14-2025 Carmita Albright MD - 06/14/2025 8:20 AM EDTMever Albright MD - 06/14/2025 8:20 AM EDT Note Date & Type Note Facility 06-14-2025 History of Presen t illness Narrative Associated Problem(s): Tobacco abuse congrats on cessation Images from the original note were not included. Subjective Patient ID: Tara De Jesus is a 40 y.o. female who presents for Annual Exam. HPI History of Present Illness The patient presents for a persistent cough, suspected urinary tract infection, weight loss, and health maintenance. She reports an improvement in her overall health, with the exception of a persistent cough. She has successfully quit smoking and drinking alcohol. Her breathing is normal, and she is not experiencing any chest pain. She has a deviated septum, which does not cause her any discomfort. She suspects the onset of a urinary tract infection and took Azo last night. She is willing to provide a urine sample today, although she notes that her urine is orange in color. She has been making efforts to maintain a healthy diet, but has noticed a gradual weight loss. She contracted COVID-19 four years ago, which she believes has affected her sense of taste. This has led to a decrease in her food intake, although she tries to consume protein-rich foods. Her weight has fluctuated between 129 and 140 pounds over the past year. She consumes minimal sugar and finds it challenging to eat when she does not feel hungry or when food does not taste good to her. She is currently at a healthy weight and plans to seek medical advice if her weight consistently falls below 130 pounds. She experienced an episode of palpitations, which she attributes to a panic attack. This was accompanied by sweating and occurred during sleep, waking her up. She has not had a recurrence of this episode. Diet: She tries to eat protein-rich foods and consumes minimal sugar. Alcohol: She has quit drinking alcohol. Tobacco: She has quit smoking. Objective BP 128/76 (BP Location: Left arm, Patient Position: Sitting, BP Cuff Size: Adult) Pulse (!) 112 Resp 18 Ht 5' 4.75 Wt 140 lb 6.4 oz SpO2 100% BMI 23.54 kg/m Physical Exam Constitutional: Appearance: Normal appearance. She [...] content normal. Judgment: Judgment normal. Physical Exam Nose: Deviated septum noted. Respiratory: Clear to auscultation, no wheezing, rales or rhonchi. Cardiovascular: Regular rate and rhythm, no murmurs, rubs, or gallops. Assessment & Plan Routine general medical examination at a health care facility Orders: CBC and differential; Future Lipid panel; Future Hemoglobin A1c; Future Comprehensive metabolic panel; Future Microalbumin / creatinine urine ratio; Future As of your wellness visit , the medical team reviewed your chart and chronic problems and treatment. Your information regarding healthy diet, activity, immunizations, depression screening, cancer screening and risk factors for disease were reviewed or addressed Tobacco abuse congrats on cessation Glucose intolerance Orders: CBC and differential; Future Lipid panel; Future Hemoglobin A1c; Future Comprehensive metabolic panel; Future Microalbumin / creatinine urine ratio; Future metFORMIN (Glucophage) 500 MG tablet; Take 1 tablet (500 mg) by mouth in the morning and 1 tablet (500 mg) in the evening. Take with meals. Dysuria Orders: Urine culture (clean catch); Future Elevated glucose Orders: CBC and differential; Future Lipid panel; Future Hemoglobin A1c; Future Comprehensive metabolic panel; Future Microalbumin / creatinine urine ratio; Future Breast cancer screening by mammogram Orders: Bilateral screening mammogram with tomosynthesis; Future Weight loss Orders: TSH W/REFLEX TO FT4; Future Assessment & Plan 1. - Symptoms suggestive of a UTI reported, including taking Azo and experiencing orange urine. - Urine sample will be collected and sent for culture. - No in-house testing available for immediate results. - Awaiting culture results to confirm infection and guide treatment. 2 Weight loss. - Significant weight loss noted since janice COVID-19 four years ago, with current weight fluctuating between 129 and 140 pounds. - Difficulty eating due to altered taste sensations reported. - Physical exam findings include healthy weight but concern over continued weight loss. - Blood work ordered, including thyroid function tests, to assess underlying causes of weight loss. 3 Health maintenance. - Successfully quit smoking and drinking alcohol. - No chest pain or breathing issues reported. - Mammogram scheduled for the fall. - Encouraged to maintain healthy eating habits and monitor weight. documented in this encounter [facility] History of Present illness Narrative 06-09-2025 Carin Mcdermott NP - 06/09/2025 11:00 AM EDT Note Date & Type Note Facility 06-09-2025 History of Presen t illness Narrative Images from the original note were not included. Subjective Patient ID: Tara De Jesus is a 40 y.o. female who presents for URI (Sore throat, cough, sneezing, sx started thursday). HPI History of Present Illness The patient presents for evaluation of a sore throat. She reports a worsening condition that began with a tickling sensation in her throat, followed by clear nasal discharge and congestion. She has been experiencing mild coughing, which she attributes to postnasal drainage, but does not report any chest discomfort. She also mentions a sensation of pressure when sneezing, which she describes as a buildup of some sort. She has no history of allergies. Yesterday, she had a low-grade fever of 99.9 degrees and felt slightly achy, but these symptoms were alleviated with Tylenol. Despite taking cwlw-oph-qyfpzvt Tylenol Cold and Flu, she felt physically drained and weak, leading her to leave work early. She reports no ear pain. Her cough is more pronounced at night, and she does not use a humidifier. Objective BP 110/70 Pulse 87 Temp 97.6 F (Tympanic) Ht 5' 4.75 Wt 140 lb 3.2 oz SpO2 99% BMI 23.51 kg/m Physical Exam Vitals and nursing note reviewed. Constitutional: Appearance: Normal appearance. HENT: Head: Normocephalic and atraumatic. Right Ear: A middle ear effusion is present. Tympanic membrane is not injected, perforated, erythematous or bulging. Left Ear: A middle ear effusion is present. Tympanic membrane is not injected, perforated, erythematous or bulging. Nose: Congestion present. Mouth/Throat: Pharynx: Posterior oropharyngeal erythema and postnasal drip present. Cardiovascular: Rate and Rhythm: Normal rate and regular rhythm. Heart sounds: Normal heart sounds. Pulmonary: Effort: Pulmonary effort is normal. No respiratory distress. Breath sounds: Normal breath sounds. No stridor. No wheezing, rhonchi or rales. Skin: General: Skin is warm and dry. Neurological: General: No focal deficit present. Mental Status: She is alert and oriented to person, place, and time. Psychiatric: Mood and Affect: Mood normal. Behavior: Behavior normal. Physical Exam Ears: Fluid present in the left ear, no signs of infection. Fluid present in the right ear. Respiratory: Clear to auscultation, no wheezing, rales or rhonchi Cardiovascular: Regular rate and rhythm, no murmurs, rubs, or gallops Assessment & Plan Upper respiratory tract infection, unspecified type Orders: STATUS COVID-19/FLU POCT rapid strep A manually resulted Most likely viral in nature, will need to run its course. Educated patient viral infections such as colds/flus do not respond to abx and typically do not begin to improve until 7-10 days into the illness. Discussed symptomatic treatment with patient. Humidifier at bedside to moisten area. Push fluids. Rest. Good handwashing. Follow up if symptoms do not improve. To ER for markedly worsening symptoms. Sore throat Orders: POCT rapid strep A manually resulted Acute effusion of both middle ears Fluid behind tympanic membrane with no active signs of infection. Explained to patient antibiotics are not indicated as there is no active infection and this could take 4-6 weeks to resolve fully. May use flonase or antihistamine OTC to help dry up secretions. Instructed to notify office immediately if patient begins to experience and sharp ear pain or fevers. Patient verbalizes understanding. Assessment & Plan 1. Sore throat. - Symptoms suggest a possible viral infection, potentially exacerbated by allergies. Presence of fluid in the ears without infection indicates postnasal drip. - Covid, influenza, and strep test are negative. - Physical exam reveals fluid in the left ear and right ear, but no infection. Lungs are clear, and heart sounds are normal. - Discussed the potential viral nature of the illness and the possibility of allergies. Advised to monitor symptoms and contact the office if not improved by Thursday for an antibiotic prescription. - Recommended yojn-pol-aawvibi cold and flu medication, warm salt water gargles, lozenges, Vicks VapoRub for the chest, and use of a humidifier. Suggested an wvsq-xkz-hzeabuq allergy medication (Claritin, Tiki, or Zyrtec) and Flonase nasal spray (1 spray per nostril daily). documented in this encounter [facility] History of Present illness Narrative 07-28-2024 Dolly Pool, COOKER SULFITE - 07/28/2024 11:00 AM EDT Note Date & Type Note Facility 07-28-2024 History of Presen t illness Narrative Reason for Appointment: Patient ID: Tara De Jesus is a 39 y.o. female who presents for Well Women Visit Patient presents today for Annual Exam. MEDICATIONS Current Outpatient Medications Medication Instructions metFORMIN (GLUCOPHAGE) 500 mg, Oral, 2 times daily with meals ALLERGIES Allergies Allergen Reactions Aspirin GI intolerance Codeine Itching PROBLEMS Active Ambulatory Problems Diagnosis Date Noted No Active Ambulatory Problems Resolved Ambulatory Problems Diagnosis Date Noted No Resolved Ambulatory Problems Past Medical History: Diagnosis Date History of hormone replacement therapy History of migraine headaches Insomnia Pelvic pain Pneumonia HISTORY PAST MEDICAL HISTORY SOCIAL HISTORY Past Medical History: Diagnosis Date History of hormone replacement therapy History of migraine headaches Insomnia Pelvic pain Pneumonia Social History Tobacco Use Smoking status: Every Day Types: Cigarettes Smokeless tobacco: Not on file Tobacco comments: 5 or less cigarettes/day Substance Use Topics Alcohol use: Yes Alcohol/week: 1.0 standard drink of alcohol Types: 1 Standard drinks or equivalent per week Comment: Alcohol: 3-4 drinks/monthly or less. Caffeine: 3-4 cups/day coffee; soda Drug use: Never FAMILY HISTORY Family History Problem Relation Name Age of Onset Cancer Mother Tori Diez Diabetes Father Walter Diez Uterine cancer Other SURGICAL HISTORY Past Surgical History: Procedure Laterality Date TOTAL ABDOMINAL HYSTERECTOMY W/ BILATERAL SALPINGOOPHORECTOMY 09/2016 TUBAL LIGATION Bilateral 2007 REVIEW OF SYSTEMS Review of Systems: Review of Systems All other systems reviewed and are negative. OBJECTIVE Objective: Physical Exam Constitutional: Appearance: Normal appearance. She is well-developed. Genitourinary: Vulva normal. Vaginal cuff intact. Cervix is not absent. Uterus is not absent. Cardiovascular: Rate and Rhythm: Normal rate and regular rhythm. Abdominal: General: Bowel sounds are normal. There is no distension. Palpations: Abdomen is soft. Tenderness: There is no abdominal tenderness. There is no guarding or rebound. Musculoskeletal: General: No swelling. Normal range of motion. Right lower leg: No edema. Left lower leg: No edema. Neurological: Mental Status: She is alert and oriented to person, place, and time. Skin: General: Skin is warm and dry. Psychiatric: Mood and Affect: Mood normal. Behavior: Behavior normal. Vitals and nursing note reviewed. Exam conducted with a building construction estimator present. Vitals: Estimated body mass index is 24.48 kg/m as calculated from the following: Height as of this encounter: 5' 4.75 . Weight as of this encounter: 146 lb. BP: 110/76 No LMP recorded. Patient has had a hysterectomy. ASSESSMENT & PLAN ICD-10-CM 1. Well woman exam with routine gynecological exam Z01.419 THIN PREP TIS PAP AND HR HPV DNA 2. Breast cancer screening by mammogram Z12.31 Bilateral screening mammogram Bilateral screening mammogram Annual: Patient presents today for an annual exam. Patient states she is doing well and has no complaints. Pap was obtained without difficulty and patient given mammogram order to have scheduled/obtained. Orders Placed This Encounter Procedures Bilateral screening mammogram Follow Up: Patient is to return in one year for annual unless needed otherwise. Documented by Dolly Pool LPN on behalf of: Juanita Medina DO documented in this encounter [facility] Evaluation note Note Date & Type Note Facility Evaluation note Diagnosis Well woman exam with routine gynecological exam Routine gynecological examination Breast cancer screening by mammogram documented in this encounter [facility] Evaluation note Note Date & Type Note Facility Evaluation note Diagnosis Upper respiratory tract infection, unspecified type- Primary Sore throat Acute pharyngitis Acute effusion of both middle ears documented in this encounter [facility] Evaluation note Note Date & Type Note Facility Evaluation note Diagnosis Routine general medical examination at a health care facility- Primary Tobacco abuse Tobacco use disorder Glucose intolerance Dysuria Elevated glucose Other abnormal glucose Breast cancer screening by mammogram Weight loss Loss of weight documented in this encounter [facility] Evaluation note Note Date & Type Note Facility Evaluation note Diagnosis Routine general medical examination at a health care facility- Primary Tobacco abuse Tobacco use disorder Glucose intolerance Dysuria Elevated glucose Other abnormal glucose Breast cancer screening by mammogram Weight loss Loss of weight Weight loss- Primary Loss of weight Anxiety Anxiety state, unspecified Oropharyngeal dysphagia Dysphagia, oropharyngeal phase Other chest pain documented in this encounter [facility] Summary Purpose Family History No Family History Records FoundNo Family History Records FoundNo Family History Records Found Advance Directives No Advanced Directives Records FoundNo Advanced Directives Records FoundNo Advanced Directives Records Found Additional Source Comments INFORMATION SOURCE (unrecogn ized section and content) DATE CREATED AUTHOR 06/02/2022 [facility] DATE CREATED AUTHOR AUTHOR'S ORGANIZ ATION 06/15/2025 [facility] EPIC DATE CREATED AUTHOR AUTHOR'S ORGANIZ ATION 08/06/2025 [facility] Care Teams (unrecognized sec tion and content) Termite Inspector Relationship Specialty Start Date End Date Carmita Albright MD [address] [place] [address] PCP - General Family Medicine 03/31/23 Carmita Albright MD [address] [place] [address] PCP - Medical [place] [employer] 11/23/23 11/22/99 Termite Inspector Relationship Specialty Start Date End Date Carmita Albright MD [address] [place] [address] PCP - General Family Medicine 03/31/23 Carmita Albright MD [address] [place] [address] PCP - Medical [place] [employer] 11/23/23 11/22/99 Termite Inspector Relationship Specialty Start Date End Date Carmita Albright MD [address] [place] [address] PCP - General Family Medicine 03/31/23 Carmita Albright MD [address] [place] [address] PCP - Medical [place] [employer] 11/23/23 11/22/99 Termite Inspector Relationship Specialty Start Date End Date Carmita Albright MD [address] [place] [address] PCP - General Family Medicine 03/31/23 Termite Inspector Relationship Specialty Start Date End Date Carmita Albright MD [address] [place] [address] PCP - General Family Medicine 03/31/23 Termite Inspector Relationship Specialty Start Date End Date Carmita Albright MD [address] [place] [address] PCP - General Family Medicine 03/31/23 Termite Inspector Relationship Specialty Start Date End Date Carmita Albright MD [address] [place] [address] PCP - General Family Medicine 03/31/23 Termite Inspector Relationship Specialty Start Date End Date Carmita Albright MD [address] [facility] [place] [address] PCP - General Family Medicine 03/31/23 Termite Inspector Relationship Specialty Start Date End Date Carmita Albright MD [address] [facility] [place] [address] PCP - General Family Medicine 03/31/23 Reason for Visit (unrecogniz ed section and content) Reason Comments Well Women Visit Reason Comments URI Sore throat, cough, sneezing, sx started thursday Reason Comments Annual Exam Reason Comments Follow-up FOR RECORDS PERTAINING TO PATIENTS WHO ARE OR HAVE BEEN ENROLLED IN A CHEMICAL DEPENDENCY/SUBSTANCEABUSE PROGRAM, SOME INFORMATION MAY BE OMITTED. This clinical summary was aggregated from multiple sources. Caution should be exercised in using it in the provision of clinical care. This summary normalizes information from multiple sources, and as a consequence, information in this document may materially change the coding, format and clinical context of patient data. In addition, data may be omitted in some cases. CLINICAL DECISIONS SHOULD BE BASED ON THE PRIMARY CLINICAL RECORDS. [facility] [employer] [facility]. provides no warranty or guarantee of the accuracy or completeness of information in this document.
--- OUTSIDE RECORDS SUMMARY | 2025-08-08 03:53 | XMS_ITS | Encounter Summary ---
Author Organization [facility] Address [address] [place] [address] Care Team Providers Care Chart Picker Name Role Phone Carmita Albright MD Primary Care Provider [phone] Encounter Details Date Type Department Care Team (Late st Contact Info) Description 08/07/2025 Bamboo flowsheet [facility] Family Medicine [address] [place] [address] Carmita Albright MD [address] [place], [place] [id number] Social History Tobacco Use Types Packs/Day Years [...] often do you attend chur ch or muslim services? More than 4 times per year 04/04/2024 Do you belong to any clubs o r organizations such as cheondoism groups, unions, fraternal or athletic groups, or [...] Recorded Patient Health Questionnaire-2 Score 0 06/14/2025 [facility] - Occupational Stress [...] place to sleep or slept in a jail (including now)? No 04/04/2024 Comments No Sex and Gender Information Value Date Recorded Sex Assigned at Female 04/04/2024 1:53 PM EDT Legal Sex Female 6:54 PM EDT Gender Identity Female 04/04/2024 1:53 PM EDT Sexual Orientation Straight 04/04/2024 1: 53 PM EDT documented as of this encounter Plan of Treatment Upcoming Encounters Date Type Department Care Team (Late st Contact Info) Description 08/14/2025 8:30 AM EDT [facility] [address] [facility] [address] [place] [address] 08/21/2025 3:00 PM EDT [facility] [address] [place] [address] Carmita Albright MD [address] [place] [address] documented as of this encounter Goals Goal [...] documented as of this encounter Care Teams Chart Picker Relationship Specialty Start Date End Date Carmita Albright MD [address] [place], [place] [id number] PCP - General Family Medicine 03/31/23 documented as of this encounter
--- OUTSIDE RECORDS SUMMARY | 2025-08-08 03:53 | XMS_ITS | Encounter Summary ---
Author Organization [facility] Healthcare Address [address] [place] [address] Care Team Providers Care Inspector And Unloader Name Role Phone Carmita Albright MD Primary Care Provider [phone] Encounter Details Date Type Department Care Team (Late st Contact Info) Description 07/21/2025 Abstract [facility] Family Medicine [address] [place] [address] Carmita Albright MD [address] [place], [place] [id number] Social History Tobacco Use Types Packs/Day Years [...] often do you attend chur ch or amish services? More than 4 times per year 04/04/2024 Do you belong to any clubs o r organizations such as protestant groups, unions, fraternal or athletic groups, or [...] Recorded Patient Health Questionnaire-2 Score 0 06/14/2025 [facility] - Occupational Stress [...] place to sleep or slept in a long-term (including now)? No 04/04/2024 Comments No Sex [...] Description 08/14/2025 8:30 AM EDT Ancillary Procedure [facility] [address] [facility] [address] [place] [address] 08/21/2025 3:00 PM EDT Office Visit [facility] [address] [facility] [place] [address] Carmita Albright MD [address] [place] [address] documented as of this encounter Visit Diagnoses Not on filedocumented in this encounter Care Teams Inspector And Unloader Relationship Specialty Start Date End Date Carmita Albright MD [address] [place] [address] PCP - General Family Medicine 03/31/23 documented as of this encounter
--- OUTSIDE RECORDS SUMMARY | 2025-08-08 03:53 | XMS_ITS | Encounter Summary ---
Author Organization [facility] Address [id number] [place] [address] Care Team Providers Care Detective Youth Bureau Name Role Phone Carmita Albright MD Primary Care Provider [phone] Encounter Details Date Type Department Care Team (Latest Contact Info) Description 08/03/2025 Travel Social History Tobacco Use Types Packs/Day Years [...] on file documented as of this encounter Plan of Treatment Not on file documented as of this encounter Visit Diagnoses Not on filedocumented in this encounter Care Teams Detective Youth Bureau Relationship Specialty Start Date End Date Carmita Albright MD PCP - General Family Medicine 10/24/21 documented as of this encounter
--- OUTSIDE RECORDS SUMMARY | 2025-08-08 03:53 | XMS_ITS | Encounter Summary ---
Author Organization [facility] Healthcare Address [address] [place] [address] Care Team Providers Care Oil Filters Inspector Name Role Phone Carmita Albright MD Primary Care Provider [phone] Encounter Details Date Type Department Care Team (Late st Contact Info) Description 06/15/2025 Results Follow-Up [facility] Family Medicine [address] [place] [address] Carmita Albright MD [address] [place], [place] [id number] CBC and differential, Lipid panel, Hemoglobin A1c, Additional followed-up results: 4 Social History Tobacco Use Types Packs/Day Years [...] How often do you attend chur or quaker services? More than 4 times per year 04/04/2024 Do you belong to any clubs o r organizations such as oriental orthodox groups, unions, fraternal or athletic groups, or [...] Recorded Patient Health Questionnaire-2 Score 0 06/14/2025 [facility] - Occupational Stress Questionnaire Answer Date Recorded [...] place to sleep or slept in a prison (including now)? No 04/04/2024 Comments No Sex [...] 08/14/2025 8:30 AM EDT Ancillary Procedure [facility] [address] [facility] [address] [place] [address] 08/21/2025 3:00 PM EDT Office Visit [facility] [address] [place] [address] Carmita Albright MD [address] [place] [address] documented as of this encounter Visit Diagnoses Not on filedocumented in this encounter Care Teams Oil Filters Inspector Relationship Specialty Start Date End Date Carmita Albright MD [address] [place] [address] PCP - General Family Medicine 03/31/23 documented as of this encounter
--- OUTSIDE RECORDS SUMMARY | 2025-08-08 03:53 | XMS_ITS | Encounter Summary ---
Author Organization [facility] Healthcare Address [address] [place] [address] Care Team Providers Care Sterile Technician Name Role Phone Carmita Albright MD Primary Care Provider [phone] Encounter Details Date Type Department Care Team (Latest Contact Info) Description 08/07/2025 Travel Social History Tobacco Use Types Packs/Day [...] often do you attend chur ch or judaism services? More than 4 times per year 04/04/2024 Do you belong to any clubs o r organizations such as islam groups, unions, fraternal or athletic groups, or [...] Recorded Patient Health Questionnaire-2 Score 0 06/14/2025 [facility] of Occupat ional Health - Occupational Stress [...] place to sleep or slept in a usp (including now)? No 04/04/2024 Comments No Sex [...] 08/14/2025 8:30 AM EDT [facility] [address] [facility] [address] [place] [address] 08/21/2025 3:00 PM EDT Office Visit [facility] [address] [place] [id number] Carmita Albright MD [address] [place], [place] [id number] documented as of this encounter Goals Goal [...] documented as of this encounter Care Teams Sterile Technician Relationship Specialty Start Date End Date Carmita Albright MD [address] [place], [place] [id number] PCP - General Family Medicine 03/31/23 documented as of this encounter
--- NOTE | 2025-08-08 04:03 | XR_ITS ---
The [address] [address] Patient Name: JANE BONE MRN: [id number] date: 1985 Sex: F Assigned Patient Location: ED.MAIN Current Patient Location: ED.MAIN Accession/Order Number: [id number] Exam Date: 08/08/2025 04:10 Report Date: 08/08/2025 08:44 At the request of: JAIRON MONTANEZ MD Procedure: XR chest 1V PORTABLE AP ERECT CHEST 0352 hours CLINICAL HISTORY: Chest pain COMPARISON: None The heart is within normal limits. There is no vascular congestion. The lungs, as visualized, are clear. There is no effusion or pneumothorax. The osseous structures are intact. Subtle dextroscoliotic curvature and mild endplate spurring are noted. XR/XR chest 1V IMPRESSION: NO ACUTE FINDINGS Impression dictated by: Anne-Marie Castillo M.D. 08/08/2025 8:44 AM Dictation Location[facility] Electronically authenticated by: [id number] Y Date: 08/08/2025 08:44
--- NOTE | 2025-08-08 04:03 | ECG_ITS ---
The [facility] Test Date: 2025-08-08 Pat Name: JANE BONE Department: Room: - Gender: Female Paper Pattern Inspector: : 1985 Requested By: [id number] Order Number: [id number] Reading MD: YAMILKA VARGAS M.D. Measurements Intervals [place] Rate: 70 P: 66 LA: 182 QRS: 70 QRSD: 90 T: 51 QT: 382 QTc: 403 Interpretive Statements 1100 Sinus rhythm 9110 normal ECG No previous ECG available for comparison Electronically Signed On 08-08-2025 20:11:22 EDT by YAMILKA VARGAS M.D.
--- NOTE | 2025-08-08 04:03 | ED.GENADUL1 ---
HPI HPI - General Adult General Chief complaint: Chest Pain Stated complaint: TIGHTNESS IN CHEST PAIN Time Seen by Provider: 08/08/25 03:48 Source: patient Mode of arrival: walk-in History of Present Illness HPI narrative: 40-year-old female presents to the emergency department for chest pain. She has been having this for many months or years. It feels like squeezing from the sides. She saw her family doctor several times and she was prescribed Lexapro and Xanax. She took the Lexapro but has not taken the Xanax. No fever or cough. She also had a visit to another emergency department approximately 5 days ago. Related Data Home Medications ?Medication ?Instructions ?Recorded ?Confirmed alprazolam 0.5 mg tablet 0.5 mg PO TID PRN anxiety 08/08/25 08/08/25 escitalopram oxalate 5 mg tablet 5 mg PO DAILY 08/08/25 08/08/25 Allergies Allergy/AdvReac Type Severity Reaction Status Date / Time aspirin Allergy Severe stomach Verified 08/08/25 03:55 pain codeine Allergy Severe Hives Verified 08/08/25 03:55 Review of Systems ROS Narrative A ten point review of systems is negative except as noted above. PFSH PFSH Social History Little interest or pleasure in doing things: not at all Feeling down, depressed, or hopeless: not at all Exam Narrative Exam Narrative: Nurses note and vital signs reviewed and patient is not hypoxic. General: The patient appears well and in no apparent distress. Patient is resting comfortably on cart. Skin: Warm, dry, no pallor noted. There is no rash noted. Head: Normocephalic, atraumatic Eye: Normal conjunctiva, no drainage Ears, Nose, Mouth, and Throat: oral mucosa is moist. Nares patent. Cardiovascular: Regular Rate and Rhythm Respiratory: Patient is in no distress, no accessory muscle use, lungs are clear to auscultation, no wheezing, rales or rhonchi Back: non-tender GI: Soft and nontender Musculoskeletal: The patient has no evidence of calf tenderness, no pitting edema, symmetrical pulses noted bilaterally Neurological: A&O, normal speech Psychiatric: Cooperative Constitutional Vital Signs, click to edit/add: Last Vital Signs Temp 98.9 F 08/08/25 03:50 Pulse 69 08/08/25 04:30 Resp 21 H 08/08/25 04:30 BP 140/96 H 08/08/25 04:30 Pulse Ox 97 08/08/25 04:02 O2 Del Method Room Air 08/08/25 04:02 Course Vital Signs Vital signs: Vital Signs Temperature 98.9 F 08/08/25 03:50 Pulse Rate 81 08/08/25 03:50 Respiratory Rate 18 08/08/25 03:50 Blood Pressure 151/103 H 08/08/25 03:50 Pulse Oximetry 98 08/08/25 03:50 Oxygen Delivery Method Room Air 08/08/25 03:50 Temperature 98.9 F 08/08/25 03:50 Pulse Rate 69 08/08/25 04:30 Respiratory Rate 21 H 08/08/25 04:30 Blood Pressure 140/96 H 08/08/25 04:30 Pulse Oximetry 97 08/08/25 04:02 Oxygen Delivery Method Room Air 08/08/25 04:02 Medical Decision Making MDM Narrative Medical decision making narrative: Her workup is negative. She has had these symptoms for more than a few months. There is no evidence of heart disease and there is no indication for further testing in the emergency department. The possibility that this is due to stress was discussed and her doctor has already prescribed her Lexapro and Xanax. She was encouraged to try the Xanax. Treatment diagnosis and follow-up were discussed with the patient. Differential Diagnosis Differential Diagnosis: Chest pain, chest wall pain, [place], PE, anxiety Lab Data Lab results reviewed: Yes I reviewed the patient's lab results Labs: Lab Results 08/08/25 Range/Units 04:15 WBC 5.1 (4.0-11.0) 10^3/uL RBC 4.36 (4.20-5.40) 10^6/uL Hgb 13.3 (12.0-16.0) g/dL Hct 37.2 (36.0-48.0) % MCV 85.3 (81.0-99.0) fL MCH 30.5 (26.7-34.0) pg MCHC 35.8 H (29.9-35.2) g/dL RDW 12.3 (11.0-15.0) % Plt Count 268 (150-450) 10^3/uL MPV 8.7 L (9.5-13.5) fL Neut % (Auto) 54.3 (43.0-75.0) % Lymph % (Auto) 34.1 (20.5-60.0) % [place] % (Auto) 10.4 (1.7-12.0) % Eos % (Auto) 0.8 L (0.9-7.0) % Baso % (Auto) 0.2 (0.2-2.0) % Neut # (Auto) 2.8 (1.4-6.5) 10^3/uL Lymph # (Auto) 1.7 (1.2-3.8) 10^3/uL [place] # (Auto) 0.5 (0.3-0.8) 10^3/uL Eos # (Auto) 0.0 (0.0-0.7) 10^3/uL Baso # (Auto) 0.0 (0.0-0.1) 10^3/uL Abs Immat Gran (auto) 0.01 (0.00-0.03) 10^3/uL Imm/Tot Granulo (auto) 0.2 (0.0-0.5) % D-Dimer <0.19 (<=0.59) mg/L FEU Sodium 142 (136-145) mmol/L Potassium 3.3 L (3.5-5.1) mmol/L Chloride 106 (98-107) mmol/L Carbon Dioxide 24.6 (21.0-32.0) mmol/L Anion Gap 14.7 BUN 12.0 (7.0-18.0) mg/dL Creatinine 0.55 (0.55-1.02) mg/dL Est GFR ( Amer) >60 (>=60 mL/min/1.73m^2) Est GFR (Non-Af Amer) >60 (>=60 mL/min/1.73m^2) BUN/Creatinine Ratio 21.8 Glucose 106 (74-106) mg/dL Calcium 9.5 (8.5-10.1) mg/dL Troponin I High Sens 6.2 (4.0-51.3) pg/mL Imaging Data Chest x-ray: Attestation: I personally reviewed and interpreted this imaging study as follows: (No acute findings) My impression: No acute findings ECG Data Attestation: I personally reviewed and interpreted this ECG as follows: (EKG on my interpretation shows normal sinus rhythm with a rate of 70 and no acute change) Discharge Plan Discharge Chief Complaint: Chest Pain Clinical Impression: Chest pain Patient Disposition: Home, Self-Care Time of Disposition Decision: 04:46 Condition: Good Mode of Transportation: Private Vehicle Prescriptions / Home Meds: No Action alprazolam 0.5 mg tablet 0.5 mg PO TID PRN (Reason: anxiety) escitalopram oxalate 5 mg tablet 5 mg PO DAILY Print Language: Bulgarian Instructions: Chest Pain (ED) Referrals: SHAHRIAR CHACON [Primary Care Provider, Family Practice] - 1 week
[2025-08-08 04:23] LABS: Hematocrit 37.2 % (36.0-48.0); Hemoglobin 13.3 g/dL (12.0-16.0); Immature Granulocytes Abs Auto 0.01 10^3/uL (0.00-0.03); Immature Granulocytes Pct Auto 0.2 % (0.0-0.5); Lymphocytes Absolute Auto 1.7 10^3/uL (1.2-3.8); Mean Corpuscular HGB Conc 35.8 g/dL (29.9-35.2); Mean Corpuscular Hemoglobin 30.5 pg (26.7-34.0); Mean Corpuscular Volume 85.3 fL (81.0-99.0); Platelet Count 268 10^3/uL (150-450); Red Blood Count 4.36 10^6/uL (4.20-5.40); White Blood Count 5.1 10^3/uL (4.0-11.0)
[2025-08-08 04:42] LABS: Anion Gap 14.7; Blood Urea Nitrogen 12.0 mg/dL (7.0-18.0); Calcium 9.5 mg/dL (8.5-10.1); Carbon Dioxide 24.6 mmol/L (21.0-32.0); Chloride 106 mmol/L (98-107); Estimated GFR (African America >60 (>=60 mL/min/1.73m^2); Estimated GFR (Non-African Ame >60 (>=60 mL/min/1.73m^2); Glucose 106 mg/dL (74-106); Potassium 3.3 mmol/L (3.5-5.1); Sodium 142 mmol/L (136-145)
== END 2025-08-08 05:00 | disposition home or self-care (01) ==
PROVIDERS: Emergency Provider Emergency Medicine; PCP Family Medicine
DX: R07.9 Chest pain, unspecified (principal)
CPT/HCPCS: 36415; 71045; 80048; 84484; 85025; 85378; 93005; 99285